=== PATIENT | male | born 1980 | race Caucasian/White ===

== ENCOUNTER 2016-06-23 01:33 | Emergency (ER) | payer OTHER ==
[2016-06-23 01:41] VITALS: TEMP 98.1; BMI 28.8
[2016-06-23 01:58] LABS: BASOPHIL 1.1 % (0-2.0); MCH 29.9 pg (25.7-33.7); MCHC 33.3 g/dl (32.0-35.9); MEAN PLT VOLUME 8.1 fl (7.5-11.1); NEUTROPHILS 50.7 % (42.8-82.8); PLATELET COUNT 281 K/MM3 (134-434); WHITE BLOOD COUNT 8.2 K/mm3 (4.0-10.0)
[2016-06-23 02:19] LABS: ALBUMIN 4.1 g/dl (3.4-5.0); ANION GAP 12 (8-16); BILIRUBIN,TOTAL 0.2 mg/dL (0.2-1.0); CALCIUM 8.9 mg/dL (8.5-10.1); CO2 25 mmol/L (21-32); CREATININE 0.9 mg/dL (0.7-1.3); GLUCOSE,RANDOM 108 mg/dL (74-106); SGOT/AST 162 U/L (15-37); SGPT/ALT 114 U/L (12-78); TOT PROT 7.3 g/dl (6.4-8.2)
[2016-06-23 02:31] LABS: ALK PHOS 90 U/L (45-117); TROPONIN I < 0.02 ng/ml (0.00-0.05)
[2016-06-23] MEDS ORDERED: SODIUM CHLORIDE 0.9% 500 ML INFUS.BAG IV ONE ×2 (03:38→05:08)
[2016-06-23] MEDS ORDERED: MAG HYDROX/AL HYDROX/SIMETH 30 ML UNIT-DOSE CUP PO ONE (03:45)
[2016-06-23] MEDS ORDERED: FAMOTIDINE 20 MG/50 ML IVPB 50 ML IVPB ONE ×2 (03:45→04:23)
[2016-06-23 04:23] LABS: URINE MARIJUANA THC NEGATIVE ng/ml (CUTOFF=50)
[2016-06-23] MEDS ORDERED: MAG HYDROX/AL HYDROX/SIMETH 30 ML UNIT-DOSE CUP ONE (04:23)
--- NOTE | 2016-06-23 04:35 | PDOC ---
History of Present Illness - General History Source: Patient - History of Present Illness Initial Comments: 06/23/16 04:36 The patient is a 35 year old male with a significant past medical history of HLD , asthma, and GERD who presents to the emergency department with complaints of constant chest pain since yesterday. Pt states that he was at [employer] when he started to have a severe heartburn. He states that he took famotidine at 2pm and 9pm, with minimal relief. He denies fever, chills, abdominal pain, nausea, vomiting, diarrhea, hematuria, dysuria ALL:theophylline PCP: Dr. Yesenia Kumar <Rhina Lombardo - Last Filed: 06/23/16 04:39> <Neeta Vega - Last Filed: 06/27/16 22:33> - General Chief Complaint: Chest Pain Stated Complaint: CHEST PAIN Time Seen by Provider: 06/23/16 03:21 Past History <Rhina Lombardo - Last Filed: 06/23/16 04:39> - Past Medical History Asthma: Yes GI Disorders: Yes (GERD) Hypercholesterolemia: Yes Suicide Attempt (Hx): No - Immunization History Immunization Up to Date: Yes - Psycho/Social/Smoking Cessation Hx Anxiety: No Suicidal Ideation: No Smoking Status: No Smoking History: Never smoked Have you smoked in the past 12 months: No Number of Cigarettes Smoked Daily: 0 Cigars Per Day: 0 Information on smoking cessation initiated: No Hx Alcohol Use: No Drug/Substance Use Hx: No Substance Use Type: None <Neeta Vega - Last Filed: 06/27/16 22:33> - Past Medical History Allergies/Adverse Reactions: Allergies Allergy/AdvReac Type Severity Reaction Status Date / Time theophylline Allergy Unknown Verified 06/23/16 01:40 Home Medications: Ambulatory Orders NK [No Known Home Medication] 05/28/16 Review of Systems - Review of Systems Able to Perform ROS?: Yes Comments:: 06/23/16 04:37 GENERAL/CONSTITUTIONAL: No: fever, chills, weakness, loss of appetite. HEAD, EYES, EARS, NOSE AND THROAT: No: change in vision, ear pain, discharge, sore throat, throat swelling. CARDIOVASCULAR: Yes: chest pain No: lightheadedness, palpitations, syncope RESPIRATORY: No: cough, shortness of breath, wheezing, hemoptysis, stridor. GASTROINTESTINAL: No: nausea, vomiting, abdominal cramping, diarrhea, rectal bleeding, constipation. GENITOURINARY: No: dysuria, hematuria, frequency, urgency, flank pain. MUSCULOSKELETAL: No: back pain, neck pain, joint pain, muscle swelling or pain SKIN AND BREASTS: No: lesions, pallor, rash or easy bruising. NEUROLOGIC: No: headache, vertigo, paresthesias, weakness ENDOCRINE: No: unexplained weight gain or loss HEMATOLOGIC/LYMPHATIC: No: anemia, easy bleeding, swelling nodes All Other Systems: Reviewed and Negative <Rhina Lobmardo - Last Filed: 06/23/16 04:39> *Physical Exam - Vital Signs Last Vital Signs Temp Pulse Resp BP Pulse Ox 98.1 F 72 20 135/75 100 06/23/16 01:40 06/23/16 01:40 06/23/16 01:40 06/23/16 01:40 06/23/16 01:40 - Physical Exam Comments: 06/23/16 04:38 GENERAL: The patient is in no acute distress. HEAD: Normal with no signs of trauma. EYES: PERRLA, EOMI, sclera anicteric, conjunctiva clear. ENT: Ears normal, nares patent, oropharynx clear without exudates. Moist mucous membranes. NECK: Normal range of motion, supple without lymphadenopathy, JVD, or masses. LUNGS: Breath sounds equal, clear to auscultation bilaterally. No wheezes, and no crackles. HEART:Regular rate and rhythm, normal S1 and S2 without murmur, rub or gallop. ABDOMEN: Soft, nontender, normoactive bowel sounds. No guarding, no rebound. EXTREMITIES: Normal range of motion, no edema. No clubbing or cyanosis. No erythema, or tenderness. NEUROLOGICAL: Cranial nerves II through XII grossly intact. Normal speech. No focal neurological deficits. MUSCULOSKELETAL: Back non-tender to palpation, no CVA tenderness SKIN: Warm, Dry, normal turgor, no rashes or lesions noted. <Rhina Lombardo - Last Filed: 06/23/16 04:39> - Vital Signs Last Vital Signs Temp Pulse Resp BP Pulse Ox 98.1 F 72 20 135/75 100 06/23/16 01:40 06/23/16 01:40 06/23/16 01:40 06/23/16 01:40 06/23/16 01:40 <Neeta Vega - Last Filed: 06/27/16 22:33> ED Treatment Course - LABORATORY CBC & Chemistry Diagram: 06/23/16 01:45 06/23/16 01:45 - ADDITIONAL ORDERS Additional order review: Laboratory Results 06/23/16 06/23/16 06/23/16 03:51 01:45 01:45 Sodium 142 Potassium 3.9 Chloride 105 Carbon Dioxide 25 Anion Gap 12 BUN 13 Creatinine 0.9 Creat Clearance w eGFR > 60 Random Glucose 108 H D Calcium 8.9 Total Bilirubin 0.2 D AST 162 H D ALT 114 H D Alkaline Phosphatase 90 Creatine Kinase 6170 H D Creatine Kinase Index 0.0 CK-MB (CK-2) 2.470 CK-MB (CK-2) Rel Index Cancelled Troponin I < 0.02 Total Protein 7.3 Albumin 4.1 Opiates Screen Negative Methadone Screen Negative Barbiturate Screen Negative Phencyclidine Screen Negative Ur Amphetamines Screen Negative MDMA (Ecstasy) Screen Negative Benzodiazepines Screen Negative Cocaine Screen Negative U Marijuana (THC) Screen Negative 06/23/16 01:45 RBC 4.98 MCV 90.0 MCHC 33.3 RDW 13.0 MPV 8.1 Neutrophils % 50.7 Lymphocytes % 33.7 Monocytes % 9.5 Eosinophils % 5.0 H D Basophils % 1.1 - Medications Given in the ED: ED Medications Discontinued Medications Generic Name Dose Route Start Last Admin Trade Name Freq PRN Reason Stop Dose Admin Al Hydroxide/Mg Hydroxide 30 ml 06/23/16 03:45 06/23/16 04:24 Mylanta Oral Suspension - PO 06/23/16 03:46 30 ml ONCE ONE Administration Famotidine/Sodium Chloride 50 mls @ 100 mls/hr 06/23/16 03:45 06/23/16 04:24 Pepcid 20 Mg Premixed Ivpb - IVPB 06/23/16 04:14 100 mls/hr ONCE ONE Administration Sodium Chloride 1,000 ml 06/23/16 03:38 06/23/16 04:24 Normal Saline - IV 06/23/16 03:39 1,000 ml ONCE ONE Administration <Rhina Lombardo - Last Filed: 06/23/16 04:39> - LABORATORY CBC & Chemistry Diagram: 06/23/16 01:45 06/23/16 01:45 - ADDITIONAL ORDERS Additional order review: Laboratory Results 06/23/16 06/23/16 06/23/16 03:51 01:45 01:45 Sodium 142 Potassium 3.9 Chloride 105 Carbon Dioxide 25 Anion Gap 12 BUN 13 Creatinine 0.9 Creat Clearance w eGFR > 60 Random Glucose 108 H D Calcium 8.9 Total Bilirubin 0.2 D AST 162 H D ALT 114 H D Alkaline Phosphatase 90 Creatine Kinase 6170 H D Creatine Kinase Index 0.0 CK-MB (CK-2) 2.470 CK-MB (CK-2) Rel Index Cancelled Troponin I < 0.02 Total Protein 7.3 Albumin 4.1 Opiates Screen Negative Methadone Screen Negative Barbiturate Screen Negative Phencyclidine Screen Negative Ur Amphetamines Screen Negative MDMA (Ecstasy) Screen Negative Benzodiazepines Screen Negative Cocaine Screen Negative U Marijuana (THC) Screen Negative 06/23/16 01:45 RBC 4.98 MCV 90.0 MCHC 33.3 RDW 13.0 MPV 8.1 Neutrophils % 50.7 Lymphocytes % 33.7 Monocytes % 9.5 Eosinophils % 5.0 H D Basophils % 1.1 - Medications Given in the ED: ED Medications Discontinued Medications Generic Name Dose Route Start Last Admin Trade Name Luiz PRN Reason Stop Dose Admin Al Hydroxide/Mg Hydroxide 30 ml 06/23/16 03:45 06/23/16 04:24 Mylanta Oral Suspension - PO 06/23/16 03:46 30 ml ONCE ONE Administration Famotidine/Sodium Chloride 50 mls @ 100 mls/hr 06/23/16 03:45 06/23/16 04:24 Pepcid 20 Mg Premixed Ivpb - IVPB 06/23/16 04:14 100 mls/hr ONCE ONE Administration Sodium Chloride 1,000 ml 06/23/16 03:38 06/23/16 04:24 Normal Saline - IV 06/23/16 03:39 1,000 ml ONCE ONE Administration <Neeta Vega - Last Filed: 06/27/16 22:33> Medical Decision Making - Medical Decision Making 06/27/16 22:30 Pt comes with epigastric pain that began after eating out; LFTs are elevated; pt states that he has had elevated LFTs in the past. However today they are slightly higher than before. He understands that he must follow with GI as an outpatient to make sure that he has no viral hepatitis. Amylase and lipase are normal. Pt has elevated CPK; he states that he recently started working out. He also took creatine supplements. Pt was hydrated in the ER and he was asked to stop the creatine supplements and to hydrate better after workouts. Pt is otherwise stable and will be discharged home. <Neeta Vega - Last Filed: 06/27/16 22:33> *DC/Admit/Observation/Transfer - Attestations Scribe Attestion: 06/23/16 04:38 Documentation prepared by Rhina Lombardo, acting as center medical specialist for Neeta Vega MD. <Rhina Lombardo - Last Filed: 06/23/16 04:39> - Discharge Dispostion Admit: No <Neeta Vega - Last Filed: 06/27/16 22:33> Diagnosis at time of Disposition: Elevated transaminase level, Elevated CPK - Discharge Dispostion Disposition: HOME Condition at time of disposition: Stable - Referrals Referrals: Yesenia Kumar MD [Primary Care Provider] - Faustino Mac MD [Staff Physician] - - Patient Instructions Printed Discharge Instructions: DI for Rhabdomyolysis, Liver Function Tests
[2016-06-23 05:51] VITALS: BP 129/76; PULSE 75
--- NOTE | 2016-06-23 11:02 | EKG ---
Test Reason : Blood Pressure : / mmHG Vent. Rate : 067 BPM Atrial Rate : 067 BPM P-R Int : 166 ms QRS Dur : 104 ms QT Int : 402 ms P-R-T Axes : 057 038 037 degrees QTc Int : 424 ms NORMAL SINUS RHYTHM WITH SINUS ARRHYTHMIA NORMAL ECG WHEN COMPARED WITH ECG OF 27-MAY-2016 17:44, NO SIGNIFICANT CHANGE WAS FOUND Confirmed by EBONIE DENNISON MD ([id number]) on 06/23/2016 11:02:28 AM Referred By: Confirmed By:EBONIE DENNISON MD
== END 2016-06-23 06:04 | disposition home or self-care (01) ==
LOC: JER 01:33
PROC: 3E033GC Introduction of Other Therapeutic Substance into Peripheral Vein, Percutaneous Approach (ICD-10-PCS; principal; 2016-06-23)
DX: R74.0 Nonspecific elevation of levels of transaminase and lactic acid dehydrogenase [LDH] (principal); R74.8 Abnormal levels of other serum enzymes; K21.9 Gastro-esophageal reflux disease without esophagitis; J45.909 Unspecified asthma, uncomplicated; E78.00 Pure hypercholesterolemia, unspecified
CPT/HCPCS: 36415; 80053; 80307; 82550; 82553; 83690; 84484; 85025; 93005; 93010; 99283-25

== ENCOUNTER 2016-11-22 20:56 | Emergency (ER) | payer OTHER ==
[2016-11-22 21:01] VITALS: TEMP 98; BMI 29.2
--- NOTE | 2016-11-22 21:07 | PDOC ---
History of Present Illness - History of Present Illness Initial Comments: 11/22/16 21:49 The patient is a 36-year-old male, with history of GERD and possible IBS, who presents to the emergency department for diarrhea and abdominal cramps for about one week since returning from a trip to [place]. The patient reports he began having exacerbation of his heartburn prior to his trip and started taking Nexium daily with some relief. The patient states that while in [place], he began developing 3-4 episodes of daily nonbloody, watery diarrhea. He states he was prompted to come to the ED today when his episodes of diarrhea increased to 5-6 times daily. He reports his bowel movements are yellow/green and watery. He also admits to some intermittent left-sided abdominal cramping. He denies history of endoscopy or colonoscopy. He reports experiencing similar symptoms after traveling to [facility] a couple of years ago, however, states his current symptoms are worse than the previous. He denies chest pain, shortness of breath, headache and dizziness. He denies fever, chills, nausea, vomit, and constipation. He denies dysuria, frequency, urgency and hematuria. Allergies: theophylline <Doris Lowery - Last Filed: 11/22/16 21:49> <Chad Thurston - Last Filed: 11/22/16 23:58> - General Chief Complaint: Pain Stated Complaint: ABD DISTRESS Time Seen by Provider: 11/22/16 21:05 Past History <Doris Lowery - Last Filed: 11/22/16 21:49> - Past Medical History Asthma: Yes GI Disorders: Yes (GERD) Hypercholesterolemia: Yes Suicide Attempt (Hx): No - Immunization History Immunization Up to Date: Yes - Psycho/Social/Smoking Cessation Hx Anxiety: No Suicidal Ideation: No Smoking Status: No Smoking History: Never smoked Have you smoked in the past 12 months: No Number of Cigarettes Smoked Daily: 0 Cigars Per Day: 0 Information on smoking cessation initiated: No Hx Alcohol Use: No Drug/Substance Use Hx: No Substance Use Type: None <Chad Thurston - Last Filed: 11/22/16 23:58> - Past Medical History Allergies/Adverse Reactions: Allergies Allergy/AdvReac Type Severity Reaction Status Date / Time theophylline Allergy Unknown Verified 11/22/16 20:57 Home Medications: Ambulatory Orders NK [No Known Home Medication] 05/28/16 Review of Systems - Review of Systems Constitutional: No: Chills, Fever, Night Sweats, Unintentional Wgt. Loss Respiratory: No: Cough, Shortness of Breath Cardiac (ROS): No: Chest Pain ABD/GI: Yes: See HPI, Diarrhea. No: Constipated, Nausea, Vomiting Musculoskeletal: No: Muscle Pain Neurological: No: Headache All Other Systems: Reviewed and Negative <Chad Thurston - Last Filed: 11/22/16 23:58> *Physical Exam - Vital Signs Last Vital Signs Temp Pulse Resp BP Pulse Ox 98.0 F 87 18 117/68 100 11/22/16 20:58 11/22/16 20:58 11/22/16 20:58 11/22/16 20:58 11/22/16 20:58 - Physical Exam Comments: 11/22/16 21:49 GENERAL: The patient is awake, alert, and fully oriented, in no acute distress. HEAD: Normal with no signs of trauma. EYES: Pupils equal, round and reactive to light, extraocular movements intact, sclera anicteric, conjunctiva clear with no pallor. ENT: Ears normal, nares patent, oropharynx clear without exudates. Moist mucous membranes. NECK: Normal range of motion, supple without lymphadenopathy, JVD, or masses. LUNGS: Breath sounds equal, clear to auscultation bilaterally. No wheeze/ crackles. HEART: Regular rate and rhythm, normal S1 and S2 without murmur or rub. ABDOMEN: Soft/nontender/nondistended. BS wnl. No guarding or rebound. No palpable masses. No hepatosplenomegaly. EXTREMITIES: Normal range of motion, no edema. No clubbing or cyanosis. No cords, erythema, or tenderness. NEUROLOGICAL: Cranial nerves II through XII grossly intact. Normal speech, normal gait. PSYCH: Normal mood, normal affect. SKIN: Warm, Dry, normal turgor, no rashes or lesions noted. <Doris Lowery - Last Filed: 11/22/16 21:49> - Vital Signs Last Vital Signs Temp Pulse Resp BP Pulse Ox 98.0 F 87 18 117/68 100 11/22/16 20:58 11/22/16 20:58 11/22/16 20:58 11/22/16 20:58 11/22/16 20:58 <Chad Thurston - Last Filed: 11/22/16 23:58> ED Treatment Course - LABORATORY CBC & Chemistry Diagram: 11/22/16 22:40 11/22/16 22:40 <Chad Thurston - Last Filed: 11/22/16 23:58> Medical Decision Making - Medical Decision Making 11/22/16 21:38 A portion of this note was documented by scribe services under my direction. I have reviewed the details of the note, within reason, and agree with the documentation with the following case summary and management plan written by me. Healthy 36-year-old male with history of GERD, question IBS presents with diarrhea and abdominal cramps for about one week since returning from a trip to [place]. Patient began having exacerbation of his heartburn prior to his trip, started taking Nexium with some relief. While in [place], began developing 3-4 episodes of nonbloody watery diarrhea daily, which as been persistent and increasing to 5-6 episodes today, prompting his ED visit. Some left-sided abdominal cramping but no persistent pain, no fevers or chills, no vomiting. No history of endoscopy or colonoscopy, just takes Nexium as needed for his heartburn exacerbations. Vital signs normal. Well-appearing, slightly dry mucosa No jaundice or pallor abd soft/nd. no focal ttp, no guarding/rebound. no cvat. 36-year-old male presents with nonbloody diarrhea and intermittent abdominal cramping after recent travel to [place], no fevers or chills. No peritoneal findings on exam. Presentation seems most consistent with traveler's diarrhea in the setting of recent GERD exacerbation, less likely focal bacterial infectious process such as colitis or diverticulitis. No indication for emergent imaging at this time will check CBC and chemistries, give IV fluid hydration, and IV antacid Reassess and dispo accordingly 11/22/16 23:55 Chemistries are within normal limits, no leukocytosis and normal differential. Looks and feels well, seated comfortably in stretcher listening to music, no further diarrhea in the ED. No indication for emergent imaging, no indication for antibiotics. We'll discharge encouraging hydration, understands return criteria. <Chad Thurston - Last Filed: 11/22/16 23:58> *DC/Admit/Observation/Transfer - Attestations Scribe Attestion: 11/22/16 21:50 Documentation prepared by Doris Lowery, acting as medical review specialist for Chad Thurston MD, <Doris Lowery - Last Filed: 11/22/16 21:49> <Chad Thurston - Last Filed: 11/22/16 23:58> Diagnosis at time of Disposition: Traveler's diarrhea - Discharge Dispostion Disposition: HOME Condition at time of disposition: Improved - Referrals Referrals: Jamie Mata DO [Staff Physician] - - Patient Instructions Printed Discharge Instructions: DI for Diarrhea and Traveler's Diarrhea -- Adult Additional Instructions: Activity as tolerated. Stay hydrated. Plenty of fluids, consider Gatorade/water mix or Pedialyte [id number]. Take Pepcid or Zantac twice daily for 10 days in addition to your Nexium. Continue Nexium daily. Advance diet as tolerated, avoiding dairy, spicy or fatty foods, caffeine and alcohol. The diarrhea is likely to resolve in the next week or so, you can take small amounts of Imodium [id number]. You should follow up with your primary doctor or a GI specialist as soon as possible regarding today's emergency department visit. Return to the emergency department for any new or concerning symptoms, particularly worsening diarrhea or bloody diarrhea, persistent or worsening pain , fevers or chills, dehydration or vomiting.
[2016-11-22] MEDS ORDERED: FAMOTIDINE 20 MG/50 ML IVPB 50 ML IVPB ONE ×2 (21:19→22:27)
[2016-11-22] MEDS ORDERED: SODIUM CHLORIDE 1,000 ML IV ONE (21:19)
[2016-11-22 22:48] LABS: BASOPHIL 0.5 % (0-2.0); MCH 29.9 pg (25.7-33.7); MCHC 33.3 g/dl (32.0-35.9); MEAN CELL VOLUME 89.9 fl (80-96); MEAN PLT VOLUME 8.2 fl (7.5-11.1); NEUTROPHILS 54.8 % (42.8-82.8); PLATELET COUNT 259 K/MM3 (134-434); RDW 13.4 % (11.9-15.9); WHITE BLOOD COUNT 8.9 K/mm3 (4.0-10.0)
[2016-11-22 23:14] LABS: ANION GAP 8 (8-16); BILIRUBIN,TOTAL 0.3 mg/dL (0.2-1.0); CALCIUM 9.2 mg/dL (8.5-10.1); CO2 28 mmol/L (21-32); GLUCOSE,RANDOM 87 mg/dL (74-106); SGOT/AST 28 U/L (15-37); SGPT/ALT 52 U/L (12-78); TOT PROT 7.6 g/dl (6.4-8.2)
[2016-11-22 23:15] LABS: ALK PHOS 97 U/L (45-117)
[2016-11-23 00:13] VITALS: BP 121/72; PULSE 82
== END 2016-11-23 00:13 | disposition home or self-care (01) ==
LOC: JER 20:56
PROC: 3E033GC Introduction of Other Therapeutic Substance into Peripheral Vein, Percutaneous Approach (ICD-10-PCS; principal; 2016-11-22)
DX: R19.7 Diarrhea, unspecified (principal); K21.9 Gastro-esophageal reflux disease without esophagitis
CPT/HCPCS: 36415; 80053; 83690; 85025; 99282-25

== ENCOUNTER 2017-09-20 18:34 | Emergency (ER) | payer OTHER ==
[2017-09-20 18:43] VITALS: BP 129/76; PULSE 91; TEMP 97.2; BMI 29.2
--- NOTE | 2017-09-20 19:26 | PDOC ---
History of Present Illness - General Chief Complaint: Pain, Acute Stated Complaint: PAIN, ACUTE Time Seen by Provider: 09/20/17 19:13 - History of Present Illness Initial Comments: 09/20/17 19:23 37 year old male with a PMH of H. pylori (x2), GERD and asthma presents to our ED this evening c/o 1 week h/o abdominal pain. Pain is associated with meals and is a burning sensation that extends from his middle abdomen to his throat. Endorses associated loose stools. Patient has tried OTC Zantac without any relief. Patient states his symptoms started 6 days previous after a large amount of alcohol consumption. Patient states he contracted H. pylori in [place] and has had an endoscopy s/p treatment. Patient is unrelatedly requesting STI testing. He denies chest pain, shortness of breath, headache and dizziness. He denies fever, chills, nausea, vomit, and constipation. He denies dysuria, frequency, urgency and hematuria. Allergy: Theophylline Past History - Past Medical History Allergies/Adverse Reactions: Allergies Allergy/AdvReac Type Severity Reaction Status Date / Time theophylline Allergy Unknown Verified 03/08/17 18:39 Home Medications: Ambulatory Orders NK [No Known Home Medication] 05/28/16 Asthma: Yes COPD: No GI Disorders: Yes (GERD, H pylori) Hypercholesterolemia: Yes - Immunization History Immunization Up to Date: Yes - Suicide/Smoking/Psychosocial Hx Smoking Status: No Smoking History: Never smoked Have you smoked in the past 12 months: No Number of Cigarettes Smoked Daily: 0 Cigars Per Day: 0 Information on smoking cessation initiated: No Hx Alcohol Use: No Drug/Substance Use Hx: No Substance Use Type: None Review of Systems - Review of Systems Constitutional: No: Chills, Fever Respiratory: No: Cough, Shortness of Breath Cardiac (ROS): No: Chest Pain, Lightheadedness, Palpitations, Syncope ABD/GI: Yes: Other (NB loose stools ). No: Constipated, Diarrhea, Nausea, Vomiting : No: Burning, Dysuria *Physical Exam - Vital Signs Last Vital Signs Temp Pulse Resp BP Pulse Ox 97.2 F L 91 H 20 129/76 96 09/20/17 18:37 09/20/17 18:37 09/20/17 18:37 09/20/17 18:37 09/20/17 18:37 - Physical Exam General Appearance: Yes: Nourished, Obese HEENT: negative: Tonsillar Exudate, Tonsillar Erythema Neck: positive: Trachea midline, Supple Respiratory/Chest: positive: Lungs Clear, Normal Breath Sounds Cardiovascular: positive: S1, S2. negative: Edema, JVD Gastrointestinal/Abdominal: positive: Normal Bowel Sounds, Soft, Protuberent Musculoskeletal: negative: CVA Tenderness (R), CVA Tenderness (L) Integumentary: positive: Normal Color, Dry, Warm Neurologic: positive: Fully Oriented, Alert ED Treatment Course - LABORATORY CBC & Chemistry Diagram: 09/20/17 20:08 09/20/17 20:08 Medical Decision Making - Medical Decision Making 09/20/17 19:35 37 year old male presents with 1 week h/o GERD like symptoms. VS unremarkable. Abdominal exam shows soft, non-tender belly with normactive bowel sounds. Will administer IV NS + Famotidine. Likely disposition is symptomatic resolution and dispo w/GI follow-up 09/20/17 21:34 HIV negative. G/C pending. Lipase wnL, patient's pain symptomatically improved. Patient extensively counseled on alcohol consumption and likely relationship to his SiSx. Will discharge home with return precautions and GI follow-up. I discussed the physical exam findings, ancillary test results and final diagnoses with the patient. I answered all of the patient's questions. The patient was satisfied with the care received and felt comfortable with the discharge plan and treatment plan. The patient will return to the Emergency Department with any new, persistent or worsening symptoms. *DC/Admit/Observation/Transfer Diagnosis at time of Disposition: Abdominal pain - Referrals Referrals: Yesenia Kumar MD [Primary Care Provider] - David Nguyen MD [Staff Physician] - - Patient Instructions Additional Instructions: Please make a follow-up appointment with GI (Dr. Nguyen). Your HIV test was negative. You can call the hospital in 72 hours for the remainder of your test results. Return to the Emergency Department for any new/worsening/concerning symptoms. - Post Discharge Activity Forms/Work/School Notes: Back to Work
[2017-09-20] MEDS ORDERED: SODIUM CHLORIDE 0.9% 500 ML INFUS.BAG IV ONE (19:28)
[2017-09-20] MEDS ORDERED: FAMOTIDINE IV 20 MG/12 ML VIAL IVPUSH ONE (19:29)
[2017-09-20] MEDS ORDERED: FAMOTIDINE 20 MG/50 ML IVPB 20 MG/50 ML MG IVPB ONE (19:33)
[2017-09-20 20:30] LABS: BASO % 0.4 % (0-2.0); EOS % 2.5 % (0-4.5); HEMATOCRIT 43.8 % (35.4-49); HEMOGLOBIN 14.9 GM/dL (11.7-16.9); LYMPH % 38.1 % (8-40); MEAN CELL VOLUME 91.2 fl (80-96); MEAN PLT VOLUME 8.8 fl (7.5-11.1); MONO % 9.2 % (3.8-10.2); NEUT % 49.8 % (42.8-82.8); PLATELET COUNT 251 K/MM3 (134-434); RDW 13.3 % (11.9-15.9); WHITE BLOOD COUNT 7.4 K/mm3 (4.0-10.0)
[2017-09-20 21:02] LABS: ALBUMIN 3.7 g/dl (3.4-5.0); ALK PHOS 91 U/L (45-117); ANION GAP 6 (8-16); BILIRUBIN,TOTAL 0.2 mg/dL (0.2-1.0); BLOOD UREA NITROGEN 13 mg/dL (7-18); CALCIUM 8.3 mg/dL (8.5-10.1); CHLORIDE 108 mmol/L (98-107); CO2 27 mmol/L (21-32); CREATININE 0.9 mg/dL (0.7-1.3); GLUCOSE,RANDOM 116 mg/dL (74-106); POTASSIUM 3.7 mmol/L (3.5-5.1); SGOT/AST 27 U/L (15-37); SGPT/ALT 54 U/L (12-78); SODIUM 141 mmol/L (136-145); TOT PROT 7.2 g/dl (6.4-8.2)
--- NOTE | 2017-09-22 13:40 | EKG ---
Test Reason : Blood Pressure : / mmHG Vent. Rate : 081 BPM Atrial Rate : 081 BPM P-R Int : 158 ms QRS Dur : 110 ms QT Int : 390 ms P-R-T Axes : 047 061 036 degrees QTc Int : 453 ms NORMAL SINUS RHYTHM NORMAL ECG WHEN COMPARED WITH ECG OF 23-JUN-2016 01:41, NO SIGNIFICANT CHANGE WAS FOUND Confirmed by MD MIC, NADIRA ([id number]) on 09/22/2017 1:40:27 PM Referred By: Confirmed By:NADIRA HAILE MD
== END 2017-09-20 22:03 | disposition home or self-care (01) ==
LOC: JER 18:34
PROC: 3E033GC Introduction of Other Therapeutic Substance into Peripheral Vein, Percutaneous Approach (ICD-10-PCS; principal; 2017-09-20)
DX: K21.9 Gastro-esophageal reflux disease without esophagitis (principal); Z71.41 Alcohol abuse counseling and surveillance of alcoholic; Z87.19 Personal history of other diseases of the digestive system; Z86.19 Personal history of other infectious and parasitic diseases
CPT/HCPCS: 36415; 80053; 83690; 85025; 86593; 87389; 87491; 87591; 93005; 93010; 99282-25

== ENCOUNTER 2018-05-18 10:04 | Observation (INO) | payer OTHER ==
[2018-05-18] MEDS ORDERED: dilTIAZem HCL 50 MG/10 ML - 10 ML VIAL IVPUSH ONE (10:27)
[2018-05-18] MEDS ORDERED: SODIUM CHLORIDE 1,000 ML IV STA (10:27)
[2018-05-18 10:36] LABS: EOS % 1.6 % (0-4.5); HEMATOCRIT 43.9 % (35.4-49); HEMOGLOBIN 15.4 GM/dL (11.7-16.9); LYMPH % 39.5 % (8-40); MCH 31.5 pg (25.7-33.7); MCHC 35.2 g/dl (32.0-35.9); MEAN CELL VOLUME 89.6 fl (80-96); MEAN PLT VOLUME 7.9 fl (7.5-11.1); MONO % 10.2 % (3.8-10.2); NEUT % 47.7 % (42.8-82.8); PLATELET COUNT 287 K/MM3 (134-434); WHITE BLOOD COUNT 6.2 K/mm3 (4.0-10.0)
[2018-05-18] MEDS ORDERED: dilTIAZem HCL 125 MG/25 ML - 25 ML VIAL ONE (10:37)
[2018-05-18] MEDS ORDERED: dilTIAZem HCL 30 MG TABLET (FP) PO ONE (10:43)
--- NOTE | 2018-05-18 10:43 | PDOC ---
History of Present Illness <Yessenia Peterson - Last Filed: 05/18/18 11:27> - General History Source: Patient Exam Limitations: No Limitations - History of Present Illness Initial Comments: 05/18/18 10:33 Patient is a 37M with history of asthma and SANTIAGO here today complaining of rapid heart beat that started several hours ago after using albuterol and walking up a hill. Patient states that he's had this happen several times in the past. Denies fevers, chills, nausea, vomiting. Denies leg swelling, prior blood clots and recent immobilization. Patient states that he had a stress test because he felt periods of rapid heart beats several times in the past so he was concerned. Denies chest pain, shortness of breath. Stress test was normal. <Ok Aguilar - Last Filed: 05/18/18 13:25> - General Chief Complaint: Palpitations Stated Complaint: PALPITATIONS,DIZZINESS Time Seen by Provider: 05/18/18 10:17 Past History <Yessenia Peterson - Last Filed: 05/18/18 11:27> - Past Medical History Asthma: Yes COPD: No GI Disorders: Yes (GERD) Hypercholesterolemia: Yes - Immunization History Immunization Up to Date: Yes - Suicide/Smoking/Psychosocial Hx Smoking Status: No Smoking History: Never smoked Have you smoked in the past 12 months: No Number of Cigarettes Smoked Daily: 0 Cigars Per Day: 0 Hx Alcohol Use: No Drug/Substance Use Hx: No Substance Use Type: None <Ok Aguilar - Last Filed: 05/18/18 13:25> - Past Medical History Allergies/Adverse Reactions: Allergies Allergy/AdvReac Type Severity Reaction Status Date / Time theophylline Allergy Unknown Verified 05/18/18 10:06 Home Medications: Ambulatory Orders NK [No Known Home Medication] 05/28/16 Review of Systems - Review of Systems Comments:: 05/18/18 10:38 GENERAL/CONSTITUTIONAL: No fever or chills. No weakness. HEAD, EYES, EARS, NOSE AND THROAT: No change in vision. No sore throat. CARDIOVASCULAR: No chest pain or shortness of breath +palpitations RESPIRATORY: No cough, wheezing, or hemoptysis. GASTROINTESTINAL: No nausea, vomiting, diarrhea or constipation. GENITOURINARY: No dysuria, frequency, or change in urination. MUSCULOSKELETAL: No joint or muscle swelling or pain. No neck or back pain. SKIN: No rash NEUROLOGIC: No headache, vertigo, loss of consciousness, or change in strength/ sensation. ENDOCRINE: No increased thirst. No abnormal weight change HEMATOLOGIC/LYMPHATIC: No anemia, easy bleeding, or history of blood clots. ALLERGIC/IMMUNOLOGIC: No hives or skin allergy. <Ok Aguilar - Last Filed: 05/18/18 13:25> *Physical Exam - Vital Signs Last Vital Signs Temp Pulse Resp BP Pulse Ox 97.3 F L 98 H 18 93/63 96 05/18/18 10:06 05/18/18 10:59 05/18/18 10:59 05/18/18 10:59 05/18/18 10:59 <Yessenia Peterson - Last Filed: 05/18/18 11:27> - Vital Signs Last Vital Signs Temp Pulse Resp BP Pulse Ox 97.3 F L 120 H 18 126/71 98 05/18/18 10:06 05/18/18 10:06 05/18/18 10:06 05/18/18 10:06 05/18/18 10:06 - Physical Exam Comments: 05/18/18 10:46 GENERAL: Awake, alert, and fully oriented, in no acute distress HEAD: No signs of trauma, normocephalic, atraumatic EYES: PERRLA, EOMI, sclera anicteric, conjunctiva clear ENT: Auricles normal inspection, hearing grossly normal, nares patent, oropharynx clear without exudates. Moist mucosa NECK: Normal ROM, supple, no lymphadenopathy, JVD, or masses LUNGS: No distress, speaks full sentences, clear to auscultation bilaterally HEART: Irregular, tachycardic ABDOMEN: Soft, nontender, normoactive bowel sounds. No guarding, no rebound. No masses EXTREMITIES: Normal inspection, Normal range of motion, no edema. No clubbing or cyanosis. NEUROLOGICAL: Cranial nerves II through XII grossly intact. Normal speech, normal gait, no focal sensorimotor deficits SKIN: Warm, Dry, normal turgor, no rashes or lesions noted. <Ok Aguilar - Last Filed: 05/18/18 13:25> Moderate Sedation - Procedure Monitoring Vital Signs: Procedure Monitoring Vital Signs Temperature 97.3 F L 05/18/18 10:06 Pulse Rate 98 H 05/18/18 10:59 Respiratory Rate 18 05/18/18 10:59 Blood Pressure 93/63 05/18/18 10:59 O2 Sat by Pulse Oximetry (%) 96 05/18/18 10:59 <Yessenia Peterson - Last Filed: 05/18/18 11:27> - Procedure Monitoring Vital Signs: Procedure Monitoring Vital Signs Temperature 97.3 F L 05/18/18 10:06 Pulse Rate 120 H 05/18/18 10:06 Respiratory Rate 18 05/18/18 10:06 Blood Pressure 126/71 05/18/18 10:06 O2 Sat by Pulse Oximetry (%) 98 05/18/18 10:06 <Ok Aguilar - Last Filed: 05/18/18 13:25> ED Treatment Course - LABORATORY CBC & Chemistry Diagram: 05/18/18 10:25 05/18/18 10:25 - ADDITIONAL ORDERS Additional order review: 05/18/18 10:25 RBC 4.90 MCV 89.6 MCHC 35.2 RDW 13.0 MPV 7.9 D Neutrophils % 47.7 Lymphocytes % 39.5 Monocytes % 10.2 Eosinophils % 1.6 Basophils % 1.0 - Medications Given in the ED: ED Medications Discontinued Medications Generic Name Dose Route Start Last Admin Trade Name Freq PRN Reason Stop Dose Admin Diltiazem HCl 20 mg 05/18/18 10:27 05/18/18 10:46 Cardizem Injection - IVPUSH 05/18/18 10:28 20 mg ONCE ONE Administration Diltiazem HCl 30 mg 05/18/18 10:43 05/18/18 10:49 Cardizem - PO 05/18/18 10:44 30 mg ONCE ONE Administration Sodium Chloride 1,000 mls @ 1,000 mls/hr 05/18/18 10:27 05/18/18 10:46 Normal Saline - IV 05/18/18 11:26 1,000 mls/hr ASDIR STA Administration <Yessenia Peterson - Last Filed: 05/18/18 11:27> - LABORATORY CBC & Chemistry Diagram: 05/18/18 10:25 05/18/18 10:25 - RADIOLOGY Radiology Studies Ordered: Category Date Time Status CXRPORT [CHEST X-RAY PORTABLE*] [RAD] Stat Radiology 05/18/18 10:28 Ordered <Ok Aguilar - Last Filed: 05/18/18 13:25> Medical Decision Making - Medical Decision Making 05/18/18 10:31 Dr. Rich Samayoa was paged and notified via phone service. <Yessenia Peterson - Last Filed: 05/18/18 11:27> - Medical Decision Making 05/18/18 10:47 Patient is 37M with history of asthma and SANTIAGO here today complaining of rapid HR. Vital signs notable for tachycardia and normal BP. EKG shows afib with RVR with rate of 127. No st elevations/depressions. Normal axis. Normal QTc/QRS. No significant t wave abnormalities. Patient has new onset afib with no clear trigger. No clear onset, shock not indicated. BP stable, given 1L of NS and 20mg diltiazem. HR now in 80s, BP continued to be stable. Given PO chaser. 05/18/18 12:25 CBC, CMP reassuring. Troponin undetectable. Repeat EKG shows afib, rate of 81, no st elevations/depressions. Normal axis. Normal QRS/QTc intervals. 05/18/18 13:24 EKG now shows normal sinus rhythm. No st elevations/depressions. Normal intervals. <Ok Aguilar - Last Filed: 05/18/18 13:25> *DC/Admit/Observation/Transfer <Yessenia Peterson - Last Filed: 05/18/18 11:27> - Discharge Dispostion Decision to Admit order: Yes <Ok Aguilar - Last Filed: 05/18/18 13:25> Diagnosis at time of Disposition: Atrial fibrillation with RVR - Discharge Dispostion Condition at time of disposition: Stable
[2018-05-18] MEDS ORDERED: dilTIAZem HCL 30 MG TABLET (FP) ONE (10:47)
--- NOTE | 2018-05-18 11:01 | PDOC ---
Attending Attestation - Medical Decision Making Case discussed with Dr. Ananda Aguayo at 12:41. <Harrison Putnam - Last Filed: 05/18/18 12:41> - Resident Resident Name: Juan AlbertoOk reddy - ED Attending Attestation I have performed the following: I have examined & evaluated the patient, The case was reviewed & discussed with the resident, I agree w/resident's findings & plan, Exceptions are as noted - HPI HPI: 05/18/18 10:59 37y M hx of asthma, SANTIAGO presents with palpitations for approx 2 hrs. pt ntoes he woke up feeling well, had an albuterol and [place]inted [place] to get to his car and started feeling palpitations. He has had this happen before, but this time it didnt resolve spontaneously. Pt denies any palpitations, sob, cp, n/v, back pain, abd pain, diarrhea, emlena, bpr, weight loss, sweats, cough, hemoptysis, leg swelling. GENERAL: The patient is awake, alert, and fully oriented, Nontoxic - in no acute distress. HEAD: Normocephalic, atraumatic. EYES: extraocular movements intact, sclera anicteric, conjunctiva clear. ENT: Normal voice, Moist mucous membranes. NECK: Normal range of motion, supple LUNGS: Breath sounds equal, clear to auscultation bilaterally. No wheezes, no rhonchi, no rales. HEART: irregularly irregular, normal S1 and S2 without murmur, rub or gallop. ABDOMEN: Soft, nontender, normoactive bowel sounds. No guarding, no rebound. . No CVA tenderness EXTREMITIES: Normal range of motion, no edema. No clubbing or cyanosis. No cords, erythema, or tenderness. NEUROLOGICAL: No facial assymetry, Normal speech, PSYCH: Normal mood, normal affect. SKIN: Warm, Dry, normal turgor, - Physicial Exam PE: 05/20/18 10:23 see above - Critical Care Time Total Critical Care Time: 45 Critical Care Statement: The care of this patient involved high complexity decision making to prevent further life threatening deterioration of the patient 's condition and/or to evaluate & treat vital organ system(s) failure or risk of failure. - Medical Decision Making 05/18/18 15:22 37y M presns with new onset of afib. improved with dilitazem. unclear onset - so will need workup consulted cardiology pt on monitoring specialist had spontaneously cardioverted in ED while bieing observed. will admit to tele <Anthony Mc - Last Filed: 05/20/18 10:23> Attestations - Attestations Documentation prepared by Harrison Putnam, acting as medical office assistant for Anthony Mc MD. <Harrison Putnam - Last Filed: 05/18/18 12:41>
[2018-05-18 11:36] LABS: ALK PHOS 84 U/L (45-117); ANION GAP 5 MMOL/L (8-16); BILIRUBIN,TOTAL 0.6 mg/dL (0.2-1); BLOOD UREA NITROGEN 13 mg/dL (7-18); CHLORIDE 109 mmol/L (98-107); CO2 26 mmol/L (21-32); CREATININE 1.1 mg/dL (0.55-1.3); GLUCOSE,RANDOM 99 mg/dL (74-106); MAGNESIUM 2.3 mg/dL (1.8-2.4); POTASSIUM 4.1 mmol/L (3.5-5.1); SGOT/AST 38 U/L (15-37); SGPT/ALT 57 U/L (13-61); SODIUM 141 mmol/L (136-145); TOT PROT 7.8 g/dl (6.4-8.2)
[2018-05-18 11:39] LABS: INR 0.97 (0.83-1.09); PROTHROMBIN TIME (PATIENT) 11.4 SEC (9.7-13.0)
--- NOTE | 2018-05-18 14:24 | EKG ---
Test Reason : Blood Pressure : / mmHG Vent. Rate : 078 BPM Atrial Rate : 078 BPM P-R Int : 162 ms QRS Dur : 106 ms QT Int : 376 ms P-R-T Axes : 011 044 027 degrees QTc Int : 428 ms NORMAL SINUS RHYTHM NORMAL ECG WHEN COMPARED WITH ECG OF 18-MAY-2018 10:51, SINUS RHYTHM HAS REPLACED ATRIAL FIBRILLATION Confirmed by MD MIC, NADIRA ([id number]) on 05/18/2018 2:24:19 PM Referred By: Confirmed By:NADIRA HAILE MD
[2018-05-18 14:49] VITALS: BMI 30.4
--- NOTE | 2018-05-18 16:23 | EKG ---
Test Reason : Blood Pressure : / mmHG Vent. Rate : 081 BPM Atrial Rate : 096 BPM P-R Int : 000 ms QRS Dur : 104 ms QT Int : 374 ms P-R-T Axes : 000 070 019 degrees QTc Int : 434 ms ATRIAL FIBRILLATION ABNORMAL ECG Confirmed by MD NIKKIE, JOSÉ ([id number]) on 05/18/2018 4:23:18 PM Referred By: Confirmed By:JOSÉ LUNDY MD
--- NOTE | 2018-05-18 16:24 | EKG ---
Test Reason : Blood Pressure : / mmHG Vent. Rate : 127 BPM Atrial Rate : 136 BPM P-R Int : 000 ms QRS Dur : 106 ms QT Int : 294 ms P-R-T Axes : 000 067 030 degrees QTc Int : 427 ms ATRIAL FIBRILLATION WITH RAPID VENTRICULAR RESPONSE ABNORMAL ECG Confirmed by MD NIKKIE, JOSÉ ([id number]) on 05/18/2018 4:23:58 PM Referred By: Confirmed By:JOSÉ LUNDY MD
[2018-05-18] MEDS ORDERED: ACETAMINOPHEN 325 MG TABLET (FP) PO PRN (16:44)
--- NOTE | 2018-05-18 17:42 | HP ---
Admitting History and Physical - Primary Care Physician PCP: Ananda Aguayo - Admission Chief Complaint: Papitations History of Present Illness: Pt with significant Hx/o HLP, SANTIAGO, Asthma, useed albuterol pump this AM and ran up the hill to his car; as he got to his car felt his heart beating fast and kept being fast; Pt felt lightheaded at work and as his HR kept beiong fast decided to come to ER. In ER his HR was found in upper 120 and EKG was consistant with A Fib; pt received Cardizem IVP and PO. History Source: Patient - Past Medical History Cardiovascular: Yes: Hyperlipdemia Pulmonary: Yes: Asthma, Sleep Apnea - Past Surgical History Additional Past Surgical History: Right knee Sx - Smoking History Smoking history: Never smoked Have you smoked in the past 12 months: No Aproximately how many cigarettes per day: 0 - Alcohol/Substance Use Hx Alcohol Use: Yes (socially) History of Substance Use: reports: None Home Medications - Allergies Allergies/Adverse Reactions: Allergies Allergy/AdvReac Type Severity Reaction Status Date / Time theophylline Allergy Unknown Verified 05/18/18 10:06 - Home Medications Home Medications: Ambulatory Orders NK [No Known Home Medication] 05/28/16 Review of Systems - Review of Systems Constitutional: denies: Chills, Fever Eyes: denies: Blind Spots, Blurred Vision HENT: denies: Difficult Swallowing, Ear Discharge, Nasal Congestion, Throat Pain Neck: denies: Pain on Movement, Stiffness, Tenderness Cardiovascular: reports: Palpitations. denies: Chest Pain, Edema Respiratory: denies: Cough, SOB, SOB on Exertion, Wheezing Gastrointestinal: denies: Abdominal Pain, Diarrhea, Nausea, Vomiting Genitourinary: denies: Burning, Discharge, Dysuria Musculoskeletal: denies: Back Pain, Joint Swelling, Muscle Pain Integumentary: denies: Blister, Bruising, Eczema Neurological: denies: Change in LOC, Change in Speech, Numbness, Parasthesia, Unsteady Gait, Weakness Endocrine: denies: Excessive Sweating, Intolerance to Cold Hematology/Lymphatic: denies: Easily Bruised, Excessive Bleeding Psychiatric: denies: Anxiety, Depression Physical Examination Vital Signs: Vital Signs Temperature 97.7 F 05/18/18 14:29 Pulse Rate 77 05/18/18 14:29 Respiratory Rate 18 05/18/18 14:29 Blood Pressure 105/60 05/18/18 14:29 O2 Sat by Pulse Oximetry (%) 96 05/18/18 14:29 Constitutional: Yes: No Distress, Calm Eyes: Yes: Conjunctiva Clear, EOM Intact, PERRL HENT: No: Hoarseness, Rhinnorhea, Thrush Neck: Yes: Trachea Midline. No: Lymphadenopathy Cardiovascular: Yes: Regular Rate and Rhythm, S1, S2 Respiratory: Yes: Regular, CTA Bilaterally. No: Rhonchi, Wheezes Gastrointestinal: Yes: Normal Bowel Sounds, Soft. No: Hepatomegaly, Tenderness ...Rectal Exam: Yes: Deferred Renal/: No: CVA Tenderness - Left, CVA Tenderness - Right Musculoskeletal: No: Back Pain, Joint Stiffness, Joint Swelling Edema: No Integumentary: No: Erythema, Petechiae, Rash Neurological: Yes: Alert, Oriented, Other (motor and sensory examination is symmeteric in the face/ UE/ LE) Psychiatric: Yes: Alert, Oriented Labs: CBC, BMP 05/18/18 10:25 05/18/18 10:25 Imaging - Results Chest X-ray: Report Reviewed Problem List - Problems (1) SANTIAGO (obstructive sleep apnea) Code(s): G47.33 - OBSTRUCTIVE SLEEP APNEA (ADULT) (PEDIATRIC) (2) Atrial fibrillation with RVR Code(s): I48.91 - UNSPECIFIED ATRIAL FIBRILLATION (3) Asthma Code(s): J45.909 - UNSPECIFIED ASTHMA, UNCOMPLICATED Qualifiers: Asthma severity: unspecified severity Asthma complication type: uncomplicated Qualified Code(s): J45.909 - Unspecified asthma, uncomplicated (4) Elevated CPK Code(s): R74.8 - ABNORMAL LEVELS OF OTHER SERUM ENZYMES Assessment/Plan Admit to telemetry Serial CE UA, U tox Cardio consult ECHO AM labs, include Thyroid tests
[2018-05-18 21:48] LABS: URINE APPEARANCE CLEAR; URINE BILIRUBIN NEGATIVE (<2.0 mg/dL); URINE COLOR YELLOW; URINE GLUCOSE (UA) NEGATIVE (NEGATIVE); URINE KETONE NEGATIVE (NEGATIVE); URINE LEUK ESTERASE NEGATIVE (NEGATIVE); URINE NITRITE NEGATIVE (NEGATIVE); URINE PROTEIN NEGATIVE (NEGATIVE); URINE UROBILINOGEN NEGATIVE mg/dL (0.2-1.0)
[2018-05-18 22:57] LABS: COCAINE, UR NEGATIVE ng/ml (CUTOFF=300); METHADONE, UR NEGATIVE ng/ml (CUTOFF=300); OPIATES, URI NEGATIVE ng/ml (CUTOFF=300); PHENCYCLIDINE,URINE NEGATIVE ng/ml (CUTOFF=25); URINE AMPHETAMINES NEGATIVE ng/ml (CUTOFF=500); URINE BARBITURATES NEGATIVE ng/ml (CUTOFF=200); URINE BENZODIAZEPINES NEGATIVE ng/ml (CUTOFF=200)
[2018-05-19] MEDS ORDERED: ALPRAZolam 0.25 MG TABLET PO ONE (00:15)
[2018-05-19 07:50] LABS: CHOLESTEROL 235 mg/dL (50-200); HDL CHOLESTEROL 29 mg/dL (40-60); TRIGLYCERIDES 232 mg/dL (0-150)
[2018-05-19 08:10] LABS: ANION GAP 6 MMOL/L (8-16); BLOOD UREA NITROGEN 18 mg/dL (7-18); CALCIUM 8.7 mg/dL (8.5-10.1); CHLORIDE 108 mmol/L (98-107); CO2 26 mmol/L (21-32); GLUCOSE,RANDOM 91 mg/dL (74-106); SODIUM 140 mmol/L (136-145)
--- NOTE | 2018-05-19 11:53 | CON.CARD ---
Consult Consult Specialty:: Cardiology Referred by:: Ananda Aguayo MD/Karen Kumar MD Reason for Consultation:: PAF->SR, palpitations - History of Present Illness Chief Complaint: Palpitations, dyspnea History of Present Illness: 36 yo male h/o HLP (intolerant to low dose Crestor due to Ha1c increase), SANTIAGO on cpap, Asthma, useed albuterol pump this AM and ran up the hill to his car; as he got to his car felt his heart beating fast and palpitations, dyspnea, lightheaded w/o true syncope, remained tachycardic and presented to ER. In R his HR was found in upper 120 and EKG was consistant with A Fib; pt received Cardizem IVP and PO for rate-control with spontaneous conversion. Reports recent weight gain and increased snoring and daytime somnolence despite cpap compliance. - History Source History Provided By: Patient Limitations to Obtaining History: No Limitations - Past Medical History Cardio/Vascular: Yes: AFIB, Hyperlipdemia Pulmonary: Yes: Asthma, Sleep Apnea - Alcohol/Substance Use Hx Alcohol Use: Yes (socially) History of Substance Use: reports: None - Smoking History Smoking history: Never smoked Have you smoked in the past 12 months: No Aproximately how many cigarettes per day: 0 Home Medications - Allergies Allergies/Adverse Reactions: Allergies Allergy/AdvReac Type Severity Reaction Status Date / Time theophylline Allergy Unknown Verified 05/18/18 10:06 - Home Medications Home Medications: Ambulatory Orders NK [No Known Home Medication] 05/28/16 Review of Systems - Review of Systems Cardiovascular: reports: Palpitations, Shortness of Breath Neurological: reports: Dizziness Vital Signs: Vital Signs Temperature 97.5 F L 05/19/18 10:00 Pulse Rate 80 05/19/18 10:00 Respiratory Rate 18 05/19/18 10:00 Blood Pressure 110/60 05/19/18 10:00 O2 Sat by Pulse Oximetry (%) 97 05/19/18 08:00 Constitutional: Yes: No Distress, Calm Neck: Yes: Supple Respiratory: Yes: Regular, CTA Bilaterally Gastrointestinal: Yes: Normal Bowel Sounds, Soft Cardiovascular: Yes: Regular Rate and Rhythm JVD: No Carotid Bruit: No Heart Sounds: Yes: S1, S2 Edema: No - Other Data Labs, Other Data: CBC, BMP 05/18/18 10:25 05/19/18 05:50 INR, PTT INR 0.97 (0.83-1.09) 05/18/18 10:25 Troponin, BNP 05/18/18 16:45 Troponin I < 0.02 Troponin, BNP 05/18/18 16:45 Troponin I < 0.02 Afib @ 127 -> NSR @ 78 Tele: NSR Problem List - Problems (1) Hyperlipidemia Code(s): E78.5 - HYPERLIPIDEMIA, UNSPECIFIED Qualifiers: Hyperlipidemia type: pure hypercholesterolemia Qualified Code(s): E78.00 - Pure hypercholesterolemia, unspecified; E78.0 - Pure hypercholesterolemia (2) SANITAGO (obstructive sleep apnea) Code(s): G47.33 - OBSTRUCTIVE SLEEP APNEA (ADULT) (PEDIATRIC) (3) Palpitations Code(s): R00.2 - PALPITATIONS (4) Paroxysmal atrial fibrillation with rapid ventricular response Code(s): I48.0 - PAROXYSMAL ATRIAL FIBRILLATION Assessment/Plan November 07, 2016 ETT: MPHR 84%, negative submaximal stress ECG for ischemia 05/18/2018 Echo: Normal LV size and fxn, tr-mild MR, normal atrial sizes 1. Palpitations referable to paroxysmal atrial fibrillation with RVR [id number]= 0 2. OSAS on cpap 3. Hyperlipidemia with reluctance to resume statin given Crestor-associated rise in Ha1c 4. Asthma P: 1. Prefers not to be placed on standing medications, if echo confirms normal heart will start Fleicanide 50 mg as needed for recurrence with pill in pocket strategy, advised to wear apple watch to detect PAF. 2. Given low risk stroke score, no anticoagulation is warranted 3. Sleep specialist f/u for cpap pressure uptitration 4. F/u with Dr. Han as outpatient tomorrow, trial of Livalo or Pravachol 5. Thank you for consultative opportunity
--- NOTE | 2018-05-19 12:41 | ECHO ---
Name: LUH SPENCER Exam:Adult Echocardiogram Study Date: 05/19/2018 08:49 AM Age: 37 yrs Reason For Study: PAROXYSMAL ATRIAL FIBRILLATION Height: 69 in Weight: 206 lb BSA: 2.1 m2 MMode/2D Measurements & Calculations IVSd: 0.85 cm Ao root diam: 2.5 cm LVIDd: 5.2 cm LA dimension: 3.3 cm LVIDs: 3.5 cm LVPWd: 0.79 cm EDV(Teich): 131.4 ml ESV(Teich): 50.9 ml Doppler Measurements & Calculations MV E max burke: 71.1 cm/sec PI end-d burke: 115.4 cm/sec MV A max burke: 55.8 cm/sec MV E/A: 1.3 MV dec time: 0.20 sec Med Peak E' Burke: 7.8 cm/sec Med E/e': 9.1 Lat Peak E' Burke: 10.4 cm/sec Lat E/e': 6.8 Procedure A two-dimensional transthoracic echocardiogram with color flow and Doppler was performed. The study w as technically difficult with many images being suboptimal in quality. Left Ventricle The left ventricular size, thickness and function are normal. The left ventricular ejection fraction is normal. Left Ventricular Filling pattern is normal for age. The left ventricular wall motion is kirill l. Right Ventricle The right ventricle is not well visualized. Atria Normal left and right atrial size and function. Mitral Valve There is trivial mitral valve thickening. There is no mitral valve stenosis. There is trace to mild m itral regurgitation. Tricuspid Valve There is trivial tricuspid valve thickening. There is no tricuspid stenosis. There was insufficient T R detected to calculate RV systolic pressure. Aortic Valve The aortic valve is not well visualized. No hemodynamically significant valvular aortic stenosis. No aortic regurgitation is present. Pulmonic Valve The pulmonic valve is not well visualized. There is no pulmonic valvular stenosis. There is no pulmon ic valvular regurgitation. Great Vessels The aortic root is normal size. Pericardium/Pleura There is no pericardial effusion. Interpretation Summary There is trace to mild mitral regurgitation. There was insufficient TR detected to calculate RV systolic pressure. Left Ventricular Filling pattern is normal for age. The left ventricular wall motion is normal. The left ventricular ejection fraction is normal. The left ventricular size, thickness and function are normal The study was technically difficult with many images being suboptimal in quality. The right ventricle is not well visualized. MD Efren Mcmahon 05/19/2018 12:41 PM
--- NOTE | 2018-05-19 13:34 | DS ---
Physical Examination Vital Signs: Vital Signs Temperature 97.5 F L 05/19/18 10:00 Pulse Rate 80 05/19/18 10:00 Respiratory Rate 18 05/19/18 10:00 Blood Pressure 110/60 05/19/18 10:00 O2 Sat by Pulse Oximetry (%) 97 05/19/18 08:00 Findings/Remarks: Pt w/o palpitations, lightheadedness, dizziness, CP. Pt states that yesterday episode was self triggered as he took an Albuterol nebulized treatment and then 2 puffs on Albuterol before walking up the hill ( towards his car). Pt case was reviewed with Dr. Engle, Echo report was reviewed, DC medication was reviewed. Pt's condition was reviewed with pt's nurse. Time spent for managing pt's care, including discharge,: over 50 minutes. Constitutional: Yes: No Distress, Calm Cardiovascular: Yes: Regular Rate and Rhythm, S1, S2 Respiratory: Yes: Regular, CTA Bilaterally. No: Rales Gastrointestinal: Yes: Normal Bowel Sounds, Soft. No: Tenderness Edema: No Neurological: Yes: Alert, Oriented Labs: CBC, BMP 05/18/18 10:25 05/19/18 05:50 Discharge Summary Reason For Visit: A FIB WITH RAPID VENTRICULAR RESPONSE Current Active Problems Atrial fibrillation with RVR (Acute) Hyperlipidemia (Acute) SANTIAGO (obstructive sleep apnea) (Acute) Paroxysmal atrial fibrillation with rapid ventricular response (Acute) Procedures: Principal: ECHO Hospital Course: Pt drove himself to ER for persistent palpitations, yesterday, after he took an Albuterol nebulized treatment and then 2 puffs on Albuterol before walking up the hill towards his car. In ER he was found in A Fib with RVR, received IV Cardizem and then 1 dose of PO Cardizem with conversion to NSR and good HR control; pt was admitted to Telemetry for monitoring. Pt was seen by Cardiology consult (Dr. Engle); no new episode of A Fib, Echo was considered nonsignificant ; patient was cleared for home discharge with PRN Flecainide for palpitations. Condition: Stable - Instructions Diet, Activity, Other Instructions: Keep well hydrated for the next several days. Low fat, low cholesterol. Avoid any strenuous activity until cleared by Dr Han Referrals: Mariya Han MD [Staff Physician] - (tomorrow- patient was already made appointment) Yesenia Kumar MD [Primary Care Provider] - (within one week; patient needs follow up on BPM and CPK.) Disposition: HOME - Home Medications Comprehensive Discharge Medication List: Ambulatory Orders See DC instructions
[2018-05-19 15:34] VITALS: BP 114/66; PULSE 84; TEMP 98
== END 2018-05-19 15:44 | disposition home or self-care (01) ==
LOC: JER 10:04 → JERBED 12:30 → J4S 14:08
PROVIDERS: ADMIT Internal Medicine; ATTEND Internal Medicine
PROC: 3E033GC Introduction of Other Therapeutic Substance into Peripheral Vein, Percutaneous Approach (ICD-10-PCS; principal; 2018-05-18)
PROC: 3E0337Z Introduction of Electrolytic and Water Balance Substance into Peripheral Vein, Percutaneous Approach (ICD-10-PCS; 2018-05-18)
DX: I48.0 Paroxysmal atrial fibrillation (principal); E78.5 Hyperlipidemia, unspecified; J45.909 Unspecified asthma, uncomplicated; K21.9 Gastro-esophageal reflux disease without esophagitis; G47.33 Obstructive sleep apnea (adult) (pediatric); E74.8 Other specified disorders of carbohydrate metabolism; R00.2 Palpitations; Z99.89 Dependence on other enabling machines and devices
CPT/HCPCS: 36415; 71045-TC-FY; 80048; 80053; 80061; 80307; 81003; 82550; 82553; 83721; 83735; 84439; 84443; 84481; 84484; 85025; 85610; 93005; 93010; 93306-TC; 94660; 99285-25; G0378; J7030

== ENCOUNTER 2018-08-17 17:37 | Emergency (ER) | payer OTHER ==
--- NOTE | 2018-08-17 18:29 | PDOC ---
Rapid Medical Evaluation Medical Evaluation: Allergies Allergy/AdvReac Type Severity Reaction Status Date / Time theophylline Allergy Unknown Verified 05/18/18 10:06 I have performed a brief in-person evaluation of this patient. The patient presents with a chief complaint of: Ate piece of starfruit candy around 3:30 PM which had nuts in it which patient was not aware of; afterward, felt SOB, throat closing and had emesis; took epi-pen on his own at 3:45; EMS gave patient Benadryl 50 mg IM as well Pertinent physical exam findings: In NAD, oropharynx clear, no angioedema, lungs clear I have ordered the following: Nothing The patient will proceed to the ED for further evaluation. 08/17/18 18:25
[2018-08-17 18:31] VITALS: BP 116/72; PULSE 83; TEMP 98.2; BMI 29.5
[2018-08-31] MEDS ORDERED: ALBUTEROL SO4 2.5/IPRATROPIUM 0.5 INH SOL 3 ML VIAL.NEB. NEB ONE (03:46)
== END 2018-08-17 19:41 | disposition left against medical advice (07) ==
LOC: JERFT 17:37
DX: T78.40XA Allergy, unspecified, initial encounter (principal); Z91.018 Allergy to other foods
CPT/HCPCS: 99281-25

== ENCOUNTER 2018-10-16 20:17 | Emergency (ER) | payer OTHER ==
[2018-10-16 20:36] VITALS: TEMP 98; BMI 30.2
--- NOTE | 2018-10-16 21:24 | PDOC ---
History of Present Illness - General Chief Complaint: Asthma Stated Complaint: ASTHMA Time Seen by Provider: 10/16/18 20:46 - History of Present Illness Initial Comments: Erasmo Sims is a 38yo man with a PMH of asthma, SANTIAGO, anxiety who presents reporting a recent asthma exacerbation that he feels may be due to exposure to cleaning products at home. He states that he had been feeling well earlier in the week, and he used several cleaning products on Thursday evening. On Thursday , he noticed a "deep wheeze" when he woke up, but he had a scheduled trip to [facility] so did not think much about it. However, the wheeze continued and he had accidentally packed his albuterol in his luggage so asked to be let off the plane. He went to urgent care and was given 60mg prednisone and a prescription for 40mg for the next 5 days. He went to [facility] on and felt well until he woke Thursday morning, when he again noticed wheezing. He was seen by a doctor there as well. He felt that he was unable to complete his vacation, so he returned home today. Mr Sims came directly to the ED from the airport. He denies any significant continued wheezing, SOB, or cough but was concerned that he may have had a dangerous chemical exposure from his cleaning products based on what he read online. He states that the two cleaning products were used separately on different locations in his home at different times; they were never mixed to his knowledge. In addition to the prednisone, Mr Sims has been using a daily steroid inhaler prescribed by his textile coating machine operator as well as albuterol every 4-6 hours due to concern for continued wheezing. He states that he has not felt short of breath during the episode, and definitely not over the past day or two. He is also concerned that swimming in a chlorinated pool may have contributed, but he states that he has never had asthma following chlorine exposure previously. Past History - Past Medical History Allergies/Adverse Reactions: Allergies Allergy/AdvReac Type Severity Reaction Status Date / Time theophylline Allergy Unknown Verified 08/17/18 18:26 shellfish derived Allergy Verified 08/17/18 18:26 nuts Allergy Uncoded 08/17/18 18:26 Home Medications: Ambulatory Orders Flecainide Acetate [Flecainide Acetate -] 50 mg PO BID PRN #14 tablet MDD 2 Diphenhydramine [Benadryl] 50 mg IM ONCE 08/17/18 EPINEPHrine (EPI-PEN 0.3MG) [Epipen 0.3MG -] 0.3 mg IM ASDIR 08/17/18 Anemia: No Asthma: Yes Cancer: No Cardiac Disorders: No CVA: No COPD: No CHF: No Dementia: No Diabetes: No GI Disorders: Yes (GERD) Disorders: No HTN: No Hypercholesterolemia: Yes Liver Disease: No Seizures: No Thyroid Disease: No - Surgical History Abdominal Surgery: No Appendectomy: No Cardiac Surgery: No Cholecystectomy: No Lung Surgery: No Neurologic Surgery: No Orthopedic Surgery: Yes (right miniscus removed) - Immunization History Immunization Up to Date: Yes - Suicide/Smoking/Psychosocial Hx Smoking Status: No Smoking History: Never smoked Have you smoked in the past 12 months: No Number of Cigarettes Smoked Daily: 0 Cigars Per Day: 0 Hx Alcohol Use: Yes (socially) Drug/Substance Use Hx: Yes (marijuana in high school) Substance Use Type: None Hx Substance Use Treatment: No Review of Systems - Review of Systems Comments:: General: No fevers, no chills, no weight or appetite change, no malaise HEENT: No changes in vision, no changes in hearing, no congestion, no sore throat CV: No chest pain, no palpitations, no LE edema Pulm: No SOB, no cough. +Wheezing GI: No nausea or vomiting, no change in bowel habits, no melena : No frequency, no urgency, no dysuria Musc: No back pain, no joint swelling, no recent injury Skin: No rash, no lesions, no erythema Endo: No excessive thirst, no heat/cold intolerance Heme: No unusual bruising or bleeding, no swollen glands Neuro: No syncope, no numbness/tingling, no focal weakness Vasc: No claudication Psych: No recent change in mood, no SI or HI *Physical Exam - Vital Signs Last Vital Signs Temp Pulse Resp BP Pulse Ox 98 F 102 H 19 148/90 100 10/16/18 20:32 10/16/18 20:32 10/16/18 20:32 10/16/18 20:32 10/16/18 20:32 - Physical Exam Comments: General: Comfortable, no acute distress HEENT: PERRL, EOMI, MMM, voice normal, normal neck ROM, no LAD Cards: Borderline tachy around 100, regular, no murmur appreciated Pulm: Comfortable on room air, clear to auscultation bilaterally w/ trace expiratory wheeze in LLL, good air movement appreciated b/l Ext: Atraumatic. No LE edema. ROM intact. Vasc: Extremities WWP. P Skin: Normal color, no rashes or lesions Neuro: A&Ox3, CN grossly intact, normal speech, motor/sensory grossly intact and symmetric Psych: Anxious Medical Decision Making - Medical Decision Making 10/16/18 21:15 Erasmo Sims is a 38yo man with a PMH of asthma, SANTIAGO, anxiety who presents reporting a recent asthma exacerbation that he feels may be due to exposure to cleaning products at home. He has been taking prednisone that was prescribed at urgent care (will finish 5 days tomorrow) and his symptoms have resolved. He currently has no complaints. - Lung exam w/ adequate air movement over all lung marin. Trace expiratory wheeze but satting well on RA, normal RR, no sign of current asthma exacerbation. Denies any SOB - Discussed that using cleaning products in his home could potentially have triggered an asthma exacerbation but he was very unlikely to have had any dangerous chemical exposure, especially as the cleaning products were not used simultaneously or mixed - Encouraged to continue taking his home inhalers as prescribed and to finish the prescribed prednisone - Advised to follow up with his PMD and textile coating machine operator if he is concerned about additional allergy/asthma triggers. - Will discharge home with PMD follow up. Discussed with Dr Mazariegos. Eboni Lomeli PGY1 *DC/Admit/Observation/Transfer Diagnosis at time of Disposition: Asthma - Discharge Dispostion Disposition: HOME Condition at time of disposition: Stable Decision to Admit order: No - Referrals Referrals: Yesenia Kumar MD [Primary Care Provider] - - Patient Instructions Printed Discharge Instructions: Asthma -- Adult Additional Instructions: Discharge Instructions: You were seen in the emergency department following a recent asthma exacerbation. You no longer have a wheeze on lung exam. Please continue to take your daily steroid inhaler as prescribed. Use your albuterol every 4hrs as needed for continued wheezing and shortness of breath. Make sure you complete your prescription of prednisone tomorrow. Make an appointment to see your primary doctor and ENT/textile coating machine operator within the next week. You may consider getting additional allergy testing to determine if any ingredients in the cleaning products you used are causing your asthma symptoms. Seek immediate care if you have worsening symptoms, severe wheezing, difficultly breathing, or any other medical emergency. - Post Discharge Activity
[2018-10-17 00:02] VITALS: BP 130/82; PULSE 87
--- NOTE | 2018-10-17 00:32 | PDOC ---
Documentation entered by Priyanka Wan SCRIBE, acting as scribe for Sandeep Mazariegos MD. Sandeep Mazariegos MD: This documentation has been prepared by the [employer] ace Nirvannie, SCRIBE, under my direction and personally reviewed by me in its entirety. I confirm that the documentation accurately reflects all work, treatment, procedures, and medical decision making performed by me. Attending Attestation - Resident Resident Name: Eboni Lomeli - ED Attending Attestation I have performed the following: I have examined & evaluated the patient, The case was reviewed & discussed with the resident, I agree w/resident's findings & plan - HPI HPI: 10/16/18 23:06 The patient is a 38 year old male, with a significant past medical history of H. pylori, GERD, anxiety, and asthma (on daily steroid inhaler and singulair, never intubated, admitted to the ICU as a child), who presents to the emergency department with resolved wheezing. As per patient, he was cleaning 6 days ago using Lysol and Clorox/Tilex which he has never used together before. The next day the patient was set to fly to [facility] for vacation but once on board, he realized his inhaler was in his suitcase checked in and exited the plane because he was concerned may start to wheeze on the flight. He presented to urgent care that day with mild wheezing and was given prednisone 60mg and nebs and was given prescription for prednisone 40mg daily. He rescheduled his flight for the next day to go to [facility] again 4 days ago. While in [facility], he experienced a temporary "deep wheeze" while in the pool which prompted him to go to a hospital in [facility] where he was evaluated and discharged. Out of concern that he could have the wheezing again, he purchased a flight back home to [facility] and presents here after returning from the airport. He reports that he read about Lysol and Clorox triggering asthma and that there may be some tests to see if this is the case and presents to the ED with the Lysol and Clorox containers. He denies current wheezing, SOB, chest pain, cough, fevers, or chills. He denies any recent headache or dizziness. He denies any recent nausea, vomit, diarrhea or constipation. He denies any recent dysuria, frequency, urgency or hematuria. Allergies: Theophylline Past surgical history: None reported. Social History: Nonsmoker. Denies EtOH use and recreational drug use. Primary Care Physician: Dr. Ananda Aguayo - Physicial Exam PE: 10/16/18 23:07 GENERAL: Awake, alert, and fully oriented, in no acute distress HEAD: No signs of trauma EYES: PERRLA, EOMI, sclera anicteric, conjunctiva clear ENT: Oropharynx clear without exudates. Moist mucosa NECK: Normal ROM, supple, no lymphadenopathy, JVD, or masses LUNGS: Breath sounds equal, clear to auscultation bilaterally. No wheezes, and no crackles HEART: Regular rate and rhythm, normal S1 and S2, no murmurs, rubs or gallops ABDOMEN: Soft, nontender, normoactive bowel sounds. No guarding, no rebound. No masses EXTREMITIES: Normal range of motion, no edema. No cords, erythema, or tenderness NEUROLOGICAL: Normal speech, cranial nerves intact, negative pronator drift, 5/ 5 strength in all 4 extremities, normal sensation to light touch in all 4 extremities, normal cerebellar exam, normal gait, normal tone SKIN: Warm, Dry, normal turgor, no rashes or lesions noted. - Medical Decision Making 10/17/18 00:27 38yo M hx asthma presents to the ED, asymptomatic but concerned that cleaning products may have triggered an asthma exacerbation. States he has only ever had asthma exacerbations 2/2 the common cold and was alarmed that he did not have a cold preceding this exacerbation. He is currently on day 4 of his predisone course and feeling much better. Initially mildly tachycardic on arrival and hypertensive, most likely 2/2 anxiety. Rpt vitals normalized w/o intervention Discussed at length with patient that there can be multiple triggers for asthma exacerbations, including allergies, weather change, exposures but that there was no way to test for what the exact precipitating factor is. Reassured pt that in the absence of asthma symtoms here, wheezing, crackles, rales, work of breathing, and with normal vitals that he is safe for DC home with close PMD f/u. Pt in agreement with plan, encouraged to continue prednosine and use albuterol PRN. I discussed the physical exam findings, ancillary test results and final diagnoses with the patient. I answered all of the patient's questions. The patient was satisfied with the care received and felt comfortable with the discharge plan and treatment plan. The patient will call their primary care physician within 24 hours to arrange follow-up and will return to the Emergency Department with any new, persistent or worsening symptoms.
== END 2018-10-16 22:00 | disposition home or self-care (01) ==
LOC: JER 20:17
PROC: 3E0F7GC Introduction of Other Therapeutic Substance into Respiratory Tract, Via Natural or Artificial Opening (ICD-10-PCS; principal; 2018-10-16)
PROC: 3E0F7GC Introduction of Other Therapeutic Substance into Respiratory Tract, Via Natural or Artificial Opening (ICD-10-PCS; 2018-10-16)
DX: F41.9 Anxiety disorder, unspecified (principal); G47.33 Obstructive sleep apnea (adult) (pediatric); Z99.89 Dependence on other enabling machines and devices; Z87.19 Personal history of other diseases of the digestive system
CPT/HCPCS: 99282-25

== ENCOUNTER 2018-10-17 03:55 | Emergency (ER) | payer OTHER ==
--- NOTE | 2018-10-17 04:07 | PDOC ---
History of Present Illness - General Stated Complaint: ASTHMA Time Seen by Provider: 10/17/18 04:07 - History of Present Illness Initial Comments: 10/17/18 04:07 Mr. Sims is a 38 yo male w/ pmh of GERD, anxiety, H. pylori, and asthma (on daily steroid inharler and singulair; never intubated) who presents to ED for second time today with complaints of wheezing. Patient reports he was normal state of health until Thursday 10/12 when he used cleaning solution that irritated his lungs. Patient reports he had a wheeze the next day; attempted to take a flight on vacation however had to get off plan as he realized inhaler was checked in his luggage. Patient went to urgent care and was given prednisone Rx; rescheduled flight next day however returned early as wheezes persisted. Patient was here earlier today and discharged following negative exam however represented as his CPAP machine smelled of mold and he started to have increased difficulty breathing again following attempting to use it. Also endorses going on [employer] and believes that this made him more anxious. Reports he was saturating 98% with his home O2 monitor prior to presentation. Currently complaining of increased work of breathing. The patient denies chest pain, headache and dizziness. Denies fever, chills, nausea, vomit, diarrhea and constipation. Denies dysuria, frequency, urgency and hematuria. Past History - Past Medical History Allergies/Adverse Reactions: Allergies Allergy/AdvReac Type Severity Reaction Status Date / Time theophylline Allergy Unknown Verified 08/17/18 18:26 shellfish derived Allergy Verified 08/17/18 18:26 nuts Allergy Uncoded 08/17/18 18:26 Home Medications: Ambulatory Orders NK [No Known Home Medication] 10/17/18 Anemia: No Asthma: Yes Cancer: No Cardiac Disorders: No CVA: No COPD: No CHF: No Dementia: No Diabetes: No GI Disorders: Yes (GERD) Disorders: No HTN: No Hypercholesterolemia: Yes Liver Disease: No Seizures: No Thyroid Disease: No - Surgical History Abdominal Surgery: No Appendectomy: No Cardiac Surgery: No Cholecystectomy: No Lung Surgery: No Neurologic Surgery: No Orthopedic Surgery: Yes (right miniscus removed) - Immunization History Immunization Up to Date: Yes - Suicide/Smoking/Psychosocial Hx Smoking Status: No Smoking History: Never smoked Have you smoked in the past 12 months: No Number of Cigarettes Smoked Daily: 0 Cigars Per Day: 0 Hx Alcohol Use: Yes (socially) Drug/Substance Use Hx: Yes (marijuana in high school) Substance Use Type: None Hx Substance Use Treatment: No Review of Systems - Review of Systems Comments:: 10/17/18 04:21 GENERAL/CONSTITUTIONAL: No fever or chills. No weakness. HEAD, EYES, EARS, NOSE AND THROAT: No change in vision. No ear pain or discharge. No sore throat. CARDIOVASCULAR: No chest pain or shortness of breath RESPIRATORY: +Respiratory symptoms as described. No cough, or hemoptysis. GASTROINTESTINAL: No nausea, vomiting, diarrhea or constipation. GENITOURINARY: No dysuria, frequency, or change in urination. MUSCULOSKELETAL: No joint or muscle swelling or pain. No neck or back pain. SKIN: No rash NEUROLOGIC: No headache, vertigo, loss of consciousness, or change in strength/ sensation. ENDOCRINE: No increased thirst. No abnormal weight change HEMATOLOGIC/LYMPHATIC: No anemia, easy bleeding, or history of blood clots. ALLERGIC/IMMUNOLOGIC: No hives or skin allergy. *Physical Exam - Physical Exam Comments: 10/17/18 04:22 GENERAL: +Patient visibly anxious. Awake, alert, and fully oriented, in no acute distress HEAD: No signs of trauma, normocephalic, atraumatic EYES: PERRLA, EOMI, sclera anicteric, conjunctiva clear ENT: Auricles normal inspection, hearing grossly normal, nares patent, oropharynx clear without exudates. Moist mucosa NECK: Normal ROM, supple, no lymphadenopathy, JVD, or masses LUNGS: No distress, speaks full sentences, clear to auscultation bilaterally HEART: Regular rate and rhythm, normal S1 and S2, no murmurs, rubs or gallops, peripheral pulses normal and equal bilaterally. ABDOMEN: Soft, nontender, normoactive bowel sounds. No guarding, no rebound. No masses EXTREMITIES: Normal inspection, Normal range of motion, no edema. No clubbing or cyanosis. NEUROLOGICAL: Cranial nerves II through XII grossly intact. Normal speech, normal gait, no focal sensorimotor deficits SKIN: Warm, Dry, normal turgor, no rashes or lesions noted. Medical Decision Making - Medical Decision Making 10/17/18 04:57 Mr. Sims is a 38 yo male w/ pmh as described who presents for evaluation of symptoms concerning for asthma exacerbation vs. anxiety vs. allergic symptoms. Patient evaluated with CXR and given home xanax dose and duoneb for symptomatic relief. Upon repeat exam patient complaining of nasal congestion/swelling he believes has been contributing to his symptoms. Also reports he has become more relaxed / tired at this time. Currently pending CXR for further evaluation and receiving duoneb. 10/17/18 05:12 CXR negative. Patient reporting improvement of symptoms. Patient encouraged to continue home medications as written and follow-up with PCP tomorrow for further evaluation. *DC/Admit/Observation/Transfer Diagnosis at time of Disposition: Shortness of breath - Discharge Dispostion Disposition: HOME - Referrals Referrals: Yesenia Kumar MD [Staff Physician] - [facility] [place] [Provider Group] - Patient Instructions Printed Discharge Instructions: DI for Shortness of Breath Additional Instructions: You were evaluated today in the ER for your symptoms. We performed chest Xray with no concerning findings and your lungs were clear following 2 breathing treatments. We do not believe any emergent process is occurring at this time. Please follow-up with primary care provider tomorrow for further evaluation. We have also provided you with information for our internal medicine clinic you may use if you would like. Take all home medications as proscribed and return to ER if any further difficulty breathing, fever, chills, or other concerning symptoms. - Post Discharge Activity
[2018-10-17] MEDS ORDERED: ALPRAZolam 0.25 MG TABLET PO ONE (04:12)
[2018-10-17] MEDS ORDERED: ALBUTEROL SO4 2.5/IPRATROPIUM 0.5 INH SOL 3 ML VIAL.NEB. NEB ONE ×4 (04:12→05:30)
[2018-10-17 04:28] VITALS: TEMP 98; BMI 30.2
--- NOTE | 2018-10-17 04:32 | PDOC ---
Attending Attestation - Resident Resident Name: Joel Mane - ED Attending Attestation I have performed the following: I have examined & evaluated the patient, The case was reviewed & discussed with the resident, I agree w/resident's findings & plan, Exceptions are as noted - HPI HPI: 10/17/18 06:29 38yo M hx GERD, anxiety, H. pylori, SANTIAGO on nightly CPAP, and asthma (on daily steroid inharler and singulair; never intubated) presents to the ED with SOB and "anxiety." Pt reports symptoms improved en route to the ED. Pt was seen earlier by me alvarez for wheezing and concern that cleaning products triggered an asthma exacerbation. Denies SOB at this time. Denies fevers, chills, cp, headache, weakness/numbness, abd pain, LE edema. - Physicial Exam PE: 10/17/18 06:32 GENERAL: Awake, alert, and fully oriented, in no acute distress but appears mildly anxious HEAD: No signs of trauma EYES: PERRLA, EOMI, sclera anicteric, conjunctiva clear ENT: Oropharynx clear without exudates. Moist mucosa LUNGS: Breath sounds equal, clear to auscultation bilaterally. Mild exp wheeze at L lung base, and no crackles. No WOB HEART: Regular rate and rhythm, normal S1 and S2, no murmurs, rubs or gallops ABDOMEN: Soft, nontender, normoactive bowel sounds. No guarding, no rebound. No masses EXTREMITIES: Normal range of motion, no edema. No cords, erythema, or tenderness NEUROLOGICAL: Normal speech, cranial nerves intact, equal strength and sensation b/l SKIN: Warm, Dry, normal turgor, no rashes or lesions noted. - Medical Decision Making 10/17/18 06:36 38yo M hx MMP including asthma and SANTIAGO presents to the ED for resolved SOB Vitals wnl Exam with mild exp wheeze initially, resolved with neb treatment CXR clear Vitals wnl Given home dose of xanax Pt feeling better, requests DC home I discussed the physical exam findings, ancillary test results and final diagnoses with the patient. I answered all of the patient's questions. The patient was satisfied with the care received and felt comfortable with the discharge plan and treatment plan. The patient will call their primary care physician within 24 hours to arrange follow-up and will return to the Emergency Department with any new, persistent or worsening symptoms. ALso provided referral for resident clinic as pt states he has trouble getting a timely appt to see his PMD.
[2018-10-17] MEDS ORDERED: ALPRAZolam 0.25 MG TABLET ONE (04:43)
[2018-10-17 06:05] VITALS: BP 133/89; PULSE 68
== END 2018-10-17 06:00 | disposition home or self-care (01) ==
LOC: JER 03:55
DX: J45.909 Unspecified asthma, uncomplicated (principal); R06.02 Shortness of breath; G47.33 Obstructive sleep apnea (adult) (pediatric); Z99.89 Dependence on other enabling machines and devices
CPT/HCPCS: 71046-TC-FY; 99282-25

== ENCOUNTER 2018-10-20 01:00 | Emergency (ER) | payer OTHER ==
[2018-10-20 01:55] VITALS: BP 112/72; PULSE 81; TEMP 98.7; BMI 29.5
[2018-10-20 02:31] LABS: BASO % 0.8 % (0-2.0); EOS % 2.3 % (0-4.5); HEMATOCRIT 43.7 % (35.4-49); HEMOGLOBIN 14.7 GM/dL (11.7-16.9); LYMPH % 41.1 % (8-40); MCH 30.4 pg (25.7-33.7); MCHC 33.5 g/dl (32.0-35.9); MEAN CELL VOLUME 90.6 fl (80-96); MEAN PLT VOLUME 8.1 fl (7.5-11.1); MONO % 8.1 % (3.8-10.2); NEUT % 47.7 % (42.8-82.8); PLATELET COUNT 279 K/MM3 (134-434); RBC 4.83 M/mm3 (4.00-5.60); RDW 13.3 % (11.9-15.9); WHITE BLOOD COUNT 9.2 K/mm3 (4.0-10.0)
[2018-10-20 03:08] LABS: CALCIUM 8.8 mg/dL (8.5-10.1); CREATININE 0.9 mg/dL (0.55-1.3); POTASSIUM 4.1 mmol/L (3.5-5.1)
--- NOTE | 2018-10-20 03:22 | PDOC ---
Documentation entered by David Thornton SCRIBE, acting as scribe for Leigh Gonzalez DO. Leigh Gonzalez DO: This documentation has been prepared by the Norberto ace Matthew, SCRIBE, under my direction and personally reviewed by me in its entirety. I confirm that the documentation accurately reflects all work, treatment, procedures, and medical decision making performed by me. History of Present Illness - General Chief Complaint: Muscle Cramping Stated Complaint: BI LATERAL LEG CRAMPING Time Seen by Provider: 10/20/18 01:46 History Source: Patient Exam Limitations: No Limitations - History of Present Illness Initial Comments: 10/20/18 02:04 Patient is a 38 year male with a significant past medical history of GERD, anxiety, H. pylori, and asthma, who presents to the ED with complaints of bilateral leg pain that began x2 days ago. Patient returning on a flight 2 days ago and has been experiencing intermittent bilateral upper leg pain since. He reports initially thinking nothing of the pain but was advised to come into the ED by a friend who works in a medical office, causing him to become worried. Denies chest pain, sob. Denies nausea, vomiting. Denies contact with sick individuals, out of state travelling. Denies dysuria, hematuria. Denies constipation, diarrhea. Denies any other symptoms. Allergies: Theophylline Social history: No smoking. No alcohol. No illicit drugs. Surgical history: None PMD: Dr. Kumar Past History - Past Medical History Allergies/Adverse Reactions: Allergies Allergy/AdvReac Type Severity Reaction Status Date / Time theophylline Allergy Unknown Verified 10/20/18 01:54 shellfish derived Allergy Verified 10/20/18 01:54 nuts Allergy Uncoded 10/20/18 01:54 Home Medications: Ambulatory Orders NK [No Known Home Medication] 10/17/18 Anemia: No Asthma: Yes Cancer: No Cardiac Disorders: No CVA: No COPD: No CHF: No Dementia: No Diabetes: No GI Disorders: Yes (GERD) Disorders: No HTN: No Hypercholesterolemia: Yes Liver Disease: No Seizures: No Thyroid Disease: No - Surgical History Abdominal Surgery: No Appendectomy: No Cardiac Surgery: No Cholecystectomy: No Lung Surgery: No Neurologic Surgery: No Orthopedic Surgery: Yes (right miniscus removed) - Immunization History Immunization Up to Date: Yes - Suicide/Smoking/Psychosocial Hx Smoking Status: No Smoking History: Never smoked Have you smoked in the past 12 months: No Number of Cigarettes Smoked Daily: 0 Cigars Per Day: 0 Information on smoking cessation initiated: No Hx Alcohol Use: No Drug/Substance Use Hx: No Substance Use Type: None Hx Substance Use Treatment: No Review of Systems - Review of Systems Able to Perform ROS?: Yes Comments:: 10/20/18 02:04 GENERAL/CONSTITUTIONAL: No fever or chills. No weakness. HEAD, EYES, EARS, NOSE AND THROAT: No change in vision. No ear pain or discharge. No sore throat. GASTROINTESTINAL: No nausea, vomiting, diarrhea or constipation. GENITOURINARY: No dysuria, frequency, or change in urination. CARDIOVASCULAR: No chest pain or shortness of breath. RESPIRATORY: No cough, wheezing, or hemoptysis. MUSCULOSKELETAL: +Bilateral upper leg pain. No joint or muscle swelling. No neck or back pain. SKIN: No rash NEUROLOGIC: No headache, vertigo, loss of consciousness, or change in strength/ sensation. ENDOCRINE: No increased thirst. No abnormal weight change. HEMATOLOGIC/LYMPHATIC: No anemia, easy bleeding, or history of blood clots. ALLERGIC/IMMUNOLOGIC: No hives or skin allergy. *Physical Exam - Vital Signs Last Vital Signs Temp Pulse Resp BP Pulse Ox 98.7 F 81 18 112/72 97 10/20/18 01:00 10/20/18 01:00 10/20/18 01:00 10/20/18 01:00 10/20/18 01:00 - Physical Exam Comments: 10/20/18 02:04 GENERAL: Awake, in no acute distress HEAD: No signs of trauma EYES: PERRLA, EOMI, sclera anicteric, conjunctiva clear, visual acuity grossly intact ENT: Auricles normal inspection, hearing grossly normal, nares patent, oropharynx clear without exudates. Moist mucosa NECK: Normal ROM, supple, no lymphadenopathy, JVD, or masses LUNGS: Breath sounds equal, clear to auscultation bilaterally. No wheezes, and no crackles. Normal work of breathing. HEART: Regular rate and rhythm, normal S1 and S2, no murmurs, rubs or gallops ABDOMEN: Soft, nontender, normoactive bowel sounds. No guarding, no rebound. No masses. Non-distended. CHEST WALL: BACK: No midline tenderness. EXTREMITIES: Normal range of motion, no edema. No clubbing or cyanosis. No erythema, or tenderness NEUROLOGICAL: Alert, and fully oriented x4, Cranial nerves II through XII grossly intact. Normal speech, normal gait. DTRs 2/4 bilaterally. SKIN: Warm, Dry, normal turgor, no rashes or lesions noted. ED Treatment Course - LABORATORY CBC & Chemistry Diagram: 10/20/18 02:24 10/20/18 02:24 - ADDITIONAL ORDERS Additional order review: Laboratory Results 10/20/18 10/20/18 02:24 02:24 D-Dimer < 215 Sodium 139 Potassium 4.1 Chloride 107 Carbon Dioxide 27 Anion Gap 4 L BUN 20 H Creatinine 0.9 Est GFR (CKD-EPI)AfAm 126.02 Est GFR (CKD-EPI)NonAf 108.73 Random Glucose 92 Calcium 8.8 Creatine Kinase 133 10/20/18 02:24 RBC 4.83 MCV 90.6 MCHC 33.5 RDW 13.3 MPV 8.1 Neutrophils % 47.7 Lymphocytes % 41.1 H Monocytes % 8.1 Eosinophils % 2.3 Basophils % 0.8 Medical Decision Making - Medical Decision Making 10/20/18 03:17 38-year-old otherwise healthy male with intermittent bilateral leg cramping Potassium as well as d-dimer are within normal limits Patient is asymptomatic at this time He will be discharged home and advised to follow-up should he develop any worsening or steady pain in the legs or chest pain/shortness of breath *DC/Admit/Observation/Transfer Diagnosis at time of Disposition: Leg cramps - Discharge Dispostion Disposition: HOME Condition at time of disposition: Good Decision to Admit order: No - Referrals Referrals: Yesenia Kumar MD [Primary Care Provider] - - Patient Instructions Printed Discharge Instructions: DI for Nocturnal Leg Cramps Additional Instructions: If you develop chest pain or shortness of breath return to the emergency department. Otherwise follow-up with your regular physician. - Post Discharge Activity - Attestations Scribe Attestion: 10/20/18 02:05 Documentation prepared by David Thornton, acting as bio medical technician for Leigh Gonzalez DO. Physician Attestion: 10/20/18 03:20 IDr Leigh, attest that this document has been prepared under my direction and personally reviewed by me in its entirety. I further attest, that it accurately reflects all work, procedures and medical decision making performed by me.
== END 2018-10-20 03:39 | disposition home or self-care (01) ==
LOC: JER 01:00
DX: R25.2 Cramp and spasm (principal); K21.9 Gastro-esophageal reflux disease without esophagitis; J45.909 Unspecified asthma, uncomplicated; E78.00 Pure hypercholesterolemia, unspecified; F41.9 Anxiety disorder, unspecified
CPT/HCPCS: 36415; 80048; 82550; 85025; 85379; 99282-25

== ENCOUNTER 2019-06-05 02:12 | Emergency (ER) | payer OTHER ==
[2019-06-05 02:58] VITALS: TEMP 97.7; BMI 29.5
[2019-06-05] MEDS ORDERED: ALBUTEROL SO4 2.5/IPRATROPIUM 0.5 INH SOL 3 ML VIAL.NEB. NEB ONE ×2 (03:21→03:30)
[2019-06-05] MEDS ORDERED: predniSONE 20 MG TABLET (UD) PO ONE (03:43)
[2019-06-05] MEDS ORDERED: predniSONE 20 MG TABLET (UD) ONE (03:51)
[2019-06-05 04:09] VITALS: BP 130/81; PULSE 80
--- NOTE | 2019-06-05 04:35 | PDOC ---
History of Present Illness - General Chief Complaint: Asthma Stated Complaint: DIFFICLTY BREATHING Time Seen by Provider: 06/05/19 02:37 Past History - Past Medical History Allergies/Adverse Reactions: Allergies Allergy/AdvReac Type Severity Reaction Status Date / Time theophylline Allergy Unknown Verified 06/05/19 02:25 shellfish derived Allergy Verified 06/05/19 02:25 nuts Allergy Uncoded 06/05/19 02:25 Home Medications: Ambulatory Orders predniSONE [Deltasone -] 40 mg PO DAILY 4 Days #8 tablet 06/05/19 Anemia: No Asthma: Yes Cancer: No Cardiac Disorders: No CVA: No COPD: No CHF: No Dementia: No Diabetes: No GI Disorders: Yes (GERD) Disorders: No HTN: No Hypercholesterolemia: Yes (Slightly elevated) Liver Disease: No Seizures: No Thyroid Disease: No - Surgical History Abdominal Surgery: No Appendectomy: No Cardiac Surgery: No Cholecystectomy: No Lung Surgery: No Neurologic Surgery: No Orthopedic Surgery: Yes (right miniscus removed) - Immunization History Immunization Up to Date: Yes - Psycho Social/Smoking Cessation Hx Smoking Status: No Smoking History: Never smoked Have you smoked in the past 12 months: No Number of Cigarettes Smoked Daily: 0 Cigars Per Day: 0 Information on smoking cessation initiated: No Hx Alcohol Use: No Drug/Substance Use Hx: No Substance Use Type: None Hx Substance Use Treatment: No *Physical Exam - Vital Signs Last Vital Signs Temp Pulse Resp BP Pulse Ox 97.7 F 80 18 130/81 98 06/05/19 02:25 06/05/19 04:08 06/05/19 04:08 06/05/19 04:08 06/05/19 04:08 ED Treatment Course - Medications Given in the ED: ED Medications Discontinued Medications Generic Name Dose Route Start Last Admin Trade Name Freq PRN Reason Stop Dose Admin Albuterol/Ipratropium 1 amp 06/05/19 03:30 06/05/19 03:29 Duoneb - NEB 06/05/19 03:31 1 amp NOW ONE Administration Prednisone 40 mg 06/05/19 03:43 06/05/19 04:07 Deltasone - PO 06/05/19 03:44 40 mg ONCE ONE Administration Medical Decision Making - Medical Decision Making 06/05/19 04:35 HPI: 38yo M hx asthma (noncompliant with inhaled steroid, uses his albuterol inhaler 3x/day) and anxiety on Xanax presents from home requesting a nebulizer treatment for his asthma and "wheezing" x1 day. States was watching TV this PM and suddenly felt like he was severely wheezing, causing him to have difficulty breathing, causing him to become really anxious making the situation worse. Pt took a half inhalation of his albuterol inhaler then called 911. Pt had already used his albuterol this AM and this afternoon prior to episode. Pt was in [facility] prior to episode. Pt repeatedly states that he is wheezing and all he wants is a nebulizer. Denies WILDER, orthopnea, hx DVT/PE, recent travel, sick contacts, hormone use, leg swelling, recent surgery, fever, chills, fatigue, headache, dizziness, syncope, numbness/tingling, weakness, vision changes, cough, chest pain, palpitations, abdominal pain, blood in stool, diarrhea, constipation, nausea, vomiting, dysuria, hematuria, confusion. ROS: Constitutional: Negative for chills, fever, fatigue, diaphoresis. HENT: Negative for sore throat, rhinorrhea, congestion. Eyes: Negative for visual disturbance. Respiratory: Positive for shortness of breath, and wheezing. Negative for cough. Cardiovascular: Negative for chest pain, palpitations, and leg swelling. Gastrointestinal: Negative for abdominal pain, blood in stool, constipation, diarrhea, nausea, and vomiting. Genitourinary: Negative for dysuria, flank pain, and hematuria. Musculoskeletal: Negative for myalgias, back pain, and neck pain. Skin: Negative for rash. Neurological: Negative for light-headedness, dizziness, vertigo, syncope, weakness, numbness and headaches. Psychiatric/Behavioral: Positive for anxiety. Negative for behavioral problems and confusion. PE: Gen: Alert, NAD, anxious but comfortable-appearing. HEENT: PERRL, EOMI, MMM, NCAT. No conjunctival pallor. Sclera are non-icteric. Oropharynx is clear. CV: Regular rate and rhythm. No murmurs, rubs, or gallops. PULM: No resp distress. CTAB, no tightness, wheezes, rales, or rhonchi. Speaking in full sentences. ABD: soft, NT/ND, no rebound tenderness or guarding, no CVA tenderness. BACK: No TTP of c/t/l-spine. No step-offs or deformities. MSK: No bony deformities. 2+ pulses in all extremities. NEURO: AAOx3. PERRL. No gross CN deficits. Strength and sensation grossly intact throughout. EXTREMITIES: No cyanosis. No clubbing. No edema. No calf tenderness. PSYCH: Agitated anxious mood and normal thought pattern. SKIN: Warm and dry. Normal capillary refill. No rashes. No jaundice. MDM: 38yo M hx asthma (noncompliant with inhaled steroid, uses his albuterol inhaler 3x/day) and anxiety on Xanax presents from home requesting a nebulizer treatment for his asthma and "wheezing" x1 day. Slightly tachycardic to 94, other VSS, afebrile, anxious-appearing, lungs CTAB. Presentation and physical exam most consistent with panic attack. Lungs CTAB, but due to pt's hx of asthma and stated wheezing and shortness of breath, will give duonebs and prednisone and reassess. No CP, WILDER, orthopnea, fever, chills, cough, PE RFs, or cardiac RFs concerning for ACS/DC, arrhythmia, PE, or PNA. -EKG reviewed: NSR, 81bpm, normal axis, normal intervals, no e/o acute ischemia , no significant change when compared to 05/18/18. -Duonebs x1, prednisone -Dispo: pending reassessment Pt feeling much better s/p duonebs and prednisone. States wheezing and difficulty breathing resolved. Lungs remain CTAB. Less anxious-appearing, tachycardia resolved. Educated pt on asthma medications, f/u with PCP, and anxiety. Discussed role of inhaled steroid medication vs albuterol inhaler and pt still refuses to use his prescribed inhaled steroid (although states he has at home). Will dc home with PCP f/u and Prednisone rx. Return precautions given. Pt understands all dc instructions and all questions were answered. Discharge - Discharge Information Problems reviewed: Yes Clinical Impression/Diagnosis: Asthma Condition: Improved Disposition: HOME - Admission No - Additional Discharge Information Prescriptions: predniSONE [Deltasone -] 40 mg PO DAILY 4 Days #8 tablet - Follow up/Referral Referrals: Clau Jenkins [Primary Care Provider] - - Patient Discharge Instructions Patient Printed Discharge Instructions: Asthma -- Adult Additional Instructions: You have been seen in the Emergency Department for your asthma. Take Prednisone as prescribed. Use your albuterol as prescribed as needed for wheezing and shortness of breath. Follow-up with your primary care doctor this week. Return to the Emergency Department immediately for any new or worsening symptoms including severe wheezing, difficulty breathing, or chest pain. - Post Discharge Activity
--- NOTE | 2019-06-05 17:00 | EKG ---
Test Reason : Blood Pressure : / mmHG Vent. Rate : 081 BPM Atrial Rate : 081 BPM P-R Int : 144 ms QRS Dur : 114 ms QT Int : 386 ms P-R-T Axes : 045 065 047 degrees QTc Int : 448 ms NORMAL SINUS RHYTHM NORMAL ECG WHEN COMPARED WITH ECG OF 18-MAY-2018 13:13, NO SIGNIFICANT CHANGE WAS FOUND Confirmed by VIN ATKINSON MD ([id number]) on 06/05/2019 5:00:14 PM Referred By: Confirmed By:VIN ATKINSON MD
== END 2019-06-05 04:59 | disposition home or self-care (01) ==
LOC: JER 02:12
PROC: 3E0F7GC Introduction of Other Therapeutic Substance into Respiratory Tract, Via Natural or Artificial Opening (ICD-10-PCS; principal; 2019-06-05)
DX: J45.909 Unspecified asthma, uncomplicated (principal); F41.9 Anxiety disorder, unspecified; Z91.013 Allergy to seafood; Z91.018 Allergy to other foods; Z88.8 Allergy status to other drugs, medicaments and biological substances
CPT/HCPCS: 93005; 93010; 99282-25

== ENCOUNTER 2019-07-26 16:28 | Emergency (ER) | payer OTHER ==
[2019-07-26 16:36] VITALS: BP 139/79; PULSE 88; TEMP 97.9; BMI 29.5
--- NOTE | 2019-07-26 16:37 | PDOC ---
Rapid Medical Evaluation Chief Complaint: Cold Symptoms Time Seen by Provider: 07/26/19 16:32 Medical Evaluation: Allergies Allergy/AdvReac Type Severity Reaction Status Date / Time theophylline Allergy Unknown Verified 06/05/19 02:25 shellfish derived Allergy Verified 06/05/19 02:25 nuts Allergy Uncoded 06/05/19 02:25 07/26/19 16:35 Pt c/o: cough, sore throat, no meds taken, body aches, intermittent palpitation , hx anxiety, recent which increased s/s , no fever Pt on brief exam: vss, lcta, no reproducible pain pt ordered for: cxr, ekg pt to proceed to the ED Discharge Disposition - Diagnosis Cough - Referrals - Patient Instructions - Post Discharge Activity
[2019-07-26] MEDS ORDERED: diazePAM 5 MG TABLET PO ONE (17:32)
[2019-07-26] MEDS ORDERED: diazePAM 5 MG TABLET ONE (17:35)
--- NOTE | 2019-07-26 18:54 | PDOC ---
History of Present Illness - General Chief Complaint: Cold Symptoms Stated Complaint: COLD SYMPTOMS, cough, congestion Time Seen by Provider: 07/26/19 16:32 - History of Present Illness Initial Comments: 07/26/19 18:52 38-year-old male presents for evaluation of cough and sore throat and intermittent chest pain and vague complaints which have been intermittent over the last 3 to 4 weeks Past History - Past Medical History Allergies/Adverse Reactions: Allergies Allergy/AdvReac Type Severity Reaction Status Date / Time theophylline Allergy Unknown Verified 07/26/19 16:36 shellfish derived Allergy Verified 07/26/19 16:36 nuts Allergy Uncoded 07/26/19 16:36 Home Medications: Ambulatory Orders Albuterol Sulfate Inhaler - [Ventolin Hfa Inhaler -] 1 - 2 inh PO QID PRN Montelukast Sodium [Singulair] 10 mg PO DAILY 07/26/19 Pitavastatin Calcium [Livalo] 2 mg PO DAILY 07/26/19 Anemia: No Asthma: Yes Cancer: No Cardiac Disorders: No CVA: No COPD: No CHF: No Dementia: No Diabetes: No GI Disorders: Yes (GERD) Disorders: No HTN: No Hypercholesterolemia: Yes (Slightly elevated) Liver Disease: No Seizures: No Thyroid Disease: No - Surgical History Abdominal Surgery: No Appendectomy: No Cardiac Surgery: No Cholecystectomy: No Lung Surgery: No Neurologic Surgery: No Orthopedic Surgery: Yes (right miniscus removed) - Immunization History Immunization Up to Date: Yes - Psycho Social/Smoking Cessation Hx Smoking Status: No Smoking History: Never smoked Have you smoked in the past 12 months: No Number of Cigarettes Smoked Daily: 0 Cigars Per Day: 0 Information on smoking cessation initiated: No Hx Alcohol Use: No Drug/Substance Use Hx: No Substance Use Type: None Hx Substance Use Treatment: No Review of Systems - Review of Systems Constitutional: No: Fever Respiratory: Yes: Cough, Shortness of Breath Cardiac (ROS): Yes: Chest Pain *Physical Exam - Vital Signs Last Vital Signs Temp Pulse Resp BP Pulse Ox 97.9 F 88 19 139/79 97 07/26/19 16:34 07/26/19 16:34 07/26/19 16:34 07/26/19 16:34 07/26/19 16:34 - Physical Exam 07/26/19 18:52 GENERAL: The patient is awake, alert, and fully oriented, in no acute distress. HEAD: Normal with no signs of trauma. EYES: sclera anicteric, conjunctiva clear. ENT: Ears normal tympanic membranes normal oropharynx clear uvula midline NECK: Normal range of motion LUNGS: Breath sounds equal, clear to auscultation bilaterally. No wheezes, and no crackles. HEART: S1 and S2 without murmur, rub or gallop. ABDOMEN: Soft, nontender, normoactive bowel sounds. No guarding, no rebound. No masses. EXTREMITIES: Normal range of motion, no edema. No clubbing or cyanosis. No cords, erythema, or tenderness. NEUROLOGICAL: Cranial nerves II through XII grossly intact. PSYCH: Normal mood, normal affect. SKIN: Warm, Dry, normal turgor, no rashes or lesions noted. ED Treatment Course - Medications Given in the ED: ED Medications Discontinued Medications Generic Name Dose Route Start Last Admin Trade Name Freq PRN Reason Stop Dose Admin Diazepam 10 mg 07/26/19 17:32 07/26/19 17:42 Valium - PO 07/26/19 17:33 10 mg ONCE ONE Administration Medical Decision Making - Medical Decision Making 07/26/19 18:52 In the beginning of the interview the patient was extremely pressured. It seemed apparent that he was anxious and expecting a trigger for his asthma. After Valium he calmed down and was concerned about a sore throat a rapid strep test was negative. His throat exam was benign. After speaking to him further he admitted to anxiety and agreed to psychiatric follow-up. Patient is feeling better after Valium. He was previously diagnosed with anxiety and he has a prescription for Xanax which she does not like to take. I have encouraged him to take it without cutting the pills in half and to follow-up with psychiatry. Patient is in agreement with the plan. Discharge - Discharge Information Problems reviewed: Yes Clinical Impression/Diagnosis: Cough, Anxiety Condition: Stable Disposition: HOME - Admission No - Follow up/Referral Referrals: Sami Jesus MD [Primary Care Provider] - Disha Patricia [Non Staff, Medical] - Johnson Wilburn MD [Non Staff, Medical] - Betzaida Ackerman MD [Staff Physician] - Lindsay Vital MD [Staff Physician] - Yesenia Franks MD [Non Staff, Medical] - - Patient Discharge Instructions Additional Instructions: Return to the emergency room for any further issues or concerns and without fail follow-up with psychiatry in 2 to 3 days for further evaluation and treatment options. Continue with your at home Xanax as prescribed. - Post Discharge Activity
--- NOTE | 2019-07-27 16:44 | EKG ---
Test Reason : Blood Pressure : / mmHG Vent. Rate : 096 BPM Atrial Rate : 096 BPM P-R Int : 152 ms QRS Dur : 108 ms QT Int : 376 ms P-R-T Axes : 072 056 041 degrees QTc Int : 475 ms NORMAL SINUS RHYTHM POSSIBLE LEFT ATRIAL ENLARGEMENT BORDERLINE ECG Confirmed by MD NIKKIE, JOSÉ ([id number]) on 07/27/2019 4:44:19 PM Referred By: Confirmed By:JOSÉ LUNDY MD
== END 2019-07-26 19:36 | disposition home or self-care (01) ==
LOC: JERFT 16:28
DX: R05 Cough (principal); F41.9 Anxiety disorder, unspecified; J45.909 Unspecified asthma, uncomplicated; Z88.8 Allergy status to other drugs, medicaments and biological substances; Z91.013 Allergy to seafood
CPT/HCPCS: 71046-TC-FY; 87070; 87880; 93005; 93010; 99284-25

== ENCOUNTER 2021-07-16 20:28 | Emergency (ER) | payer OTHER ==
[2021-07-16 20:31] VITALS: BP 121/75; PULSE 94; TEMP 97.5; BMI 29.5
== END 2021-07-16 21:36 | disposition left against medical advice (07) ==
LOC: JER 20:28
DX: R00.2 Palpitations (principal)
CPT/HCPCS: 93005; 93010; 99283-25

== ENCOUNTER 2022-02-13 21:59 | Emergency (ER) | payer OTHER ==
[2022-02-13 22:11] VITALS: BP 153/88; PULSE 106; RESP 20; BMI 36.9
[2022-02-13] MEDS ORDERED: SODIUM CHLORIDE 0.9% 500 ML INFUS.BAG IV ONE (23:12)
[2022-02-13] MEDS ORDERED: ONDANSETRON 4 MG/2 ML VIAL IVPUSH ONE (23:12)
[2022-02-13] MEDS ORDERED: ONDANSETRON 4 MG/2 ML VIAL ONE (23:26)
== END 2022-02-14 02:24 | disposition home or self-care (01) ==
LOC: JER 21:59
PROC: 3E033GC Introduction of Other Therapeutic Substance into Peripheral Vein, Percutaneous Approach (ICD-10-PCS; principal; 2022-02-13)
DX: F12.10 Cannabis abuse, uncomplicated (principal)
CPT/HCPCS: 93005; 93010; 99284-25

== ENCOUNTER 2022-04-18 20:52 | Emergency (ER) | payer OTHER ==
[2022-04-18 21:20] VITALS: BP 136/88; PULSE 82; RESP 18; TEMP 98.1; BMI 32.5
[2022-04-18 23:03] LABS: BASO % 0.9 % (0-2.0); EOS % 7.5 % (0-4.5); HEMATOCRIT 44.1 % (35.4-49); HEMOGLOBIN 14.8 GM/dL (11.7-16.9); LYMPH % 24.3 % (8-40); MCH 30.2 pg (25.7-33.7); MCHC 33.5 g/dl (32.0-35.9); MEAN CELL VOLUME 90.1 fl (80-96); MEAN PLT VOLUME 7.6 fl (7.5-11.1); MONO % 7.1 % (3.8-10.2); NEUT % 60.2 % (42.8-82.8); PLATELET COUNT 307 10^3/uL (134-434); RBC 4.89 M/mm3 (4.00-5.60); WHITE BLOOD COUNT 8.4 K/mm3 (4.0-10.0)
[2022-04-18 23:24] LABS: ALBUMIN 3.9 g/dl (3.4-5.0); BLOOD UREA NITROGEN 8.3 mg/dL (7-18)
[2022-04-18 23:27] LABS: CREATININE 0.9 mg/dL (0.55-1.3)
[2022-04-18 23:29] LABS: BILIRUBIN,TOTAL 0.3 mg/dL (0.2-1); TOT PROT 7.7 g/dl (6.4-8.2)
== END 2022-04-19 00:14 | disposition home or self-care (01) ==
LOC: JER 20:52
DX: R73.09 Other abnormal glucose (principal)
CPT/HCPCS: 36415; 80053; 82962; 85025; 99283-25

== ENCOUNTER 2022-05-16 09:31 | Emergency (ER) | payer OTHER ==
[2022-05-16 09:40] VITALS: BP 118/63; PULSE 125; RESP 18; TEMP 98.4; BMI 31.7
== END 2022-05-16 11:05 | disposition home or self-care (01) ==
LOC: JER 09:31 → EDUNIT# 09:31 → JER 11:05
DX: J45.909 Unspecified asthma, uncomplicated (principal)
CPT/HCPCS: 99283-25

== ENCOUNTER 2023-05-12 22:34 | Emergency (ER) | payer OTHER ==
[2023-05-12 22:43] VITALS: TEMP 98.8; BMI 31.7
[2023-05-12] MEDS ORDERED: methylPREDNISolone NA SUCC 125 MG/2 ML VIAL IVPB ONE (23:16)
[2023-05-12] MEDS ORDERED: ALBUTEROL SO4 2.5/IPRATROPIUM 0.5 INH SOL 3 ML VIAL.NEB. NEB ONE ×2 (23:16→23:31)
[2023-05-12] MEDS ORDERED: ACETAMINOPHEN 1000 MG/100 ML BAG IVPB ONE (23:31)
[2023-05-12] MEDS ORDERED: methylPREDNISolone NA SUCC 125 MG/2 ML VIAL ONE (23:35)
[2023-05-12] MEDS ORDERED: SODIUM CHLORIDE 1,000 ML IV STA (23:43)
[2023-05-13] MEDS ORDERED: ACETAMINOPHEN INJECTION 100 ML IVPB ONE (00:06)
[2023-05-13 00:17] LABS: BASO % 0.8 % (0-2.0); EOS % 1.3 % (0-4.5); HEMATOCRIT 43.8 % (35.4-49); HEMOGLOBIN 14.7 GM/dL (11.7-16.9); LYMPH % 13.5 % (8-40); MCH 29.9 pg (25.7-33.7); MCHC 33.5 g/dl (32.0-35.9); MEAN CELL VOLUME 89.2 fl (80-96); MEAN PLT VOLUME 7.6 fl (7.5-11.1); MONO % 10.3 % (3.8-10.2); NEUT % 74.1 % (42.8-82.8); PLATELET COUNT 334 10^3/uL (134-434); RBC 4.91 M/mm3 (4.00-5.60); RDW 13.1 % (11.9-15.9); WHITE BLOOD COUNT 9.8 K/mm3 (4.0-10.0)
[2023-05-13 00:37] LABS: POTASSIUM 4.1 mmol/L (3.5-5.1)
[2023-05-13 00:38] LABS: CALCIUM 8.7 mg/dL (8.5-10.1)
[2023-05-13 00:39] LABS: ALBUMIN 3.8 g/dl (3.4-5.0); BLOOD UREA NITROGEN 6.9 mg/dL (7-18); MAGNESIUM 2.1 mg/dL (1.8-2.4)
[2023-05-13 00:44] LABS: BILIRUBIN,TOTAL 0.4 mg/dL (0.2-1); TOT PROT 7.7 g/dl (6.4-8.2)
[2023-05-13 01:59] VITALS: BP 127/69; PULSE 96; RESP 20
== END 2023-05-13 02:04 | disposition home or self-care (01) ==
LOC: JER 22:34
PROC: 3E0F7GC Introduction of Other Therapeutic Substance into Respiratory Tract, Via Natural or Artificial Opening (ICD-10-PCS; 2023-05-12)
PROC: 3E033NZ Introduction of Analgesics, Hypnotics, Sedatives into Peripheral Vein, Percutaneous Approach (ICD-10-PCS; principal; 2023-05-13)
PROC: 3E033GC Introduction of Other Therapeutic Substance into Peripheral Vein, Percutaneous Approach (ICD-10-PCS; 2023-05-13)
PROC: 3E0337Z Introduction of Electrolytic and Water Balance Substance into Peripheral Vein, Percutaneous Approach (ICD-10-PCS; 2023-05-13)
DX: U07.1 COVID-19 (principal); J45.901 Unspecified asthma with (acute) exacerbation; R06.02 Shortness of breath; R07.0 Pain in throat; R05.9 Cough, unspecified; R09.81 Nasal congestion; R07.89 Other chest pain; R11.2 Nausea with vomiting, unspecified; R00.2 Palpitations
CPT/HCPCS: 0241U-QW; 36415; 71045-TC-FY; 80053; 83735; 85025; 93005; 93010; 99285-25

== ENCOUNTER 2023-09-30 23:08 | Emergency (ER) | payer OTHER ==
[2023-09-30 23:16] VITALS: BP 144/79; PULSE 99; RESP 18; TEMP 98.5; BMI 31.0
[2023-10-01] MEDS ORDERED: predniSONE 20 MG TABLET (UD) ONE (00:06)
[2023-10-01] MEDS ORDERED: ALBUTEROL SO4 2.5/IPRATROPIUM 0.5 INH SOL 3 ML VIAL.NEB. NEB ONE ×3 (00:06→01:49)
[2023-10-01] MEDS: predniSONE 20 MG TABLET (UD) PO ONE (00:08)
[2023-10-01] MEDS: ALBUTEROL SO4 2.5/IPRATROPIUM 0.5 INH SOL 3 ML VIAL.NEB. NEB ONE ×3 (00:24→01:54)
[2023-10-01] MEDS ORDERED: OSELTAMIVIR PHOSPHATE 75 MG CAPSULE PO ONE (01:13)
[2023-10-01] MEDS ORDERED: OSELTAMIVIR PHOSPHATE 75 MG CAPSULE ONE (01:35)
[2023-10-01] MEDS: OSELTAMIVIR PHOSPHATE 75 MG CAPSULE PO ONE (01:41)
== END 2023-10-01 02:41 | disposition home or self-care (01) ==
LOC: JER 23:08
PROC: 3E0F7GC Introduction of Other Therapeutic Substance into Respiratory Tract, Via Natural or Artificial Opening (ICD-10-PCS; principal; 2023-10-01)
PROC: 3E0F7GC Introduction of Other Therapeutic Substance into Respiratory Tract, Via Natural or Artificial Opening (ICD-10-PCS; 2023-10-01)
PROC: 3E0F7GC Introduction of Other Therapeutic Substance into Respiratory Tract, Via Natural or Artificial Opening (ICD-10-PCS; 2023-10-01)
DX: R06.02 Shortness of breath (principal); J45.909 Unspecified asthma, uncomplicated; J10.1 Influenza due to other identified influenza virus with other respiratory manifestations; Z20.822 Contact with and (suspected) exposure to COVID-19
CPT/HCPCS: 0241U-QW; 71046-TC-FY; 93005; 93010; 99285-25

== ENCOUNTER 2023-10-26 16:53 | Emergency (ER) | payer OTHER ==
[2023-10-26 17:04] VITALS: BP 123/70; PULSE 104; RESP 18; TEMP 98; BMI 31.7
[2023-10-26] MEDS ORDERED: ONDANSETRON 4 MG/2 ML VIAL ONE (18:58)
[2023-10-26] MEDS: SODIUM CHLORIDE 0.9% 500 ML INFUS.BAG IV ONE (19:05)
[2023-10-26] MEDS: ONDANSETRON 4 MG/2 ML VIAL IVPUSH ONE (19:05)
[2023-10-26] MEDS ORDERED: ALBUTEROL SO4 2.5/IPRATROPIUM 0.5 INH SOL 3 ML VIAL.NEB. NEB ONE (19:12)
[2023-10-26] MEDS: ALBUTEROL SO4 2.5/IPRATROPIUM 0.5 INH SOL 3 ML VIAL.NEB. NEB ONE (19:12)
[2023-10-26 19:21] LABS: HEMOGLOBIN 15.4 GM/dL (11.7-16.9); MCH 30.5 pg (25.7-33.7); MCHC 34.2 g/dl (32.0-35.9); MEAN CELL VOLUME 89.4 fl (80-96); PLATELET COUNT 316 10^3/uL (134-434); RBC 5.04 M/mm3 (4.00-5.60); RDW 13.4 % (11.9-15.9); WHITE BLOOD COUNT 9.2 K/mm3 (4.0-10.0)
[2023-10-26 19:40] LABS: POTASSIUM 4.1 mmol/L (3.5-5.1)
[2023-10-26 19:41] LABS: CALCIUM 9.6 mg/dL (8.5-10.1)
[2023-10-26 19:42] LABS: BLOOD UREA NITROGEN 8.8 mg/dL (7-18)
[2023-10-26 20:33] LABS: ANISOCYTOSIS 0; MACROCYTOSIS 0
== END 2023-10-26 20:54 | disposition home or self-care (01) ==
LOC: JERFT 16:53
PROC: 3E033GC Introduction of Other Therapeutic Substance into Peripheral Vein, Percutaneous Approach (ICD-10-PCS; principal; 2023-10-26)
PROC: 3E0F7GC Introduction of Other Therapeutic Substance into Respiratory Tract, Via Natural or Artificial Opening (ICD-10-PCS; 2023-10-26)
DX: J45.41 Moderate persistent asthma with (acute) exacerbation (principal); R09.89 Other specified symptoms and signs involving the circulatory and respiratory systems; R11.10 Vomiting, unspecified
CPT/HCPCS: 36415; 71046-TC-FY; 80048; 83690; 85025; 99284-25

== ENCOUNTER 2023-11-18 04:40 | Emergency (ER) | payer OTHER ==
[2023-11-18 04:45] VITALS: BMI 31.0
[2023-11-18] MEDS: ALBUTEROL SO4 2.5/IPRATROPIUM 0.5 INH SOL 3 ML VIAL.NEB. NEB ONE (06:45)
[2023-11-18] MEDS ORDERED: ALBUTEROL SO4 2.5/IPRATROPIUM 0.5 INH SOL 3 ML VIAL.NEB. NEB ONE (06:46)
[2023-11-18 09:08] VITALS: BP 132/76; PULSE 67; RESP 20; TEMP 98.2
== END 2023-11-18 10:15 | disposition home or self-care (01) ==
LOC: JER 04:40
PROC: 3E0F7GC Introduction of Other Therapeutic Substance into Respiratory Tract, Via Natural or Artificial Opening (ICD-10-PCS; principal; 2023-11-18)
DX: J45.909 Unspecified asthma, uncomplicated (principal); F41.9 Anxiety disorder, unspecified; R07.89 Other chest pain
CPT/HCPCS: 99283-25

== ENCOUNTER 2023-11-23 01:48 | Emergency (ER) | payer OTHER ==
[2023-11-23 01:56] VITALS: BMI 31.0
[2023-11-23 02:04] VITALS: TEMP 98
[2023-11-23 03:10] LABS: BASO % 0.5 % (0-2.0); HEMATOCRIT 42.2 % (35.4-49); HEMOGLOBIN 14.3 GM/dL (11.7-16.9); LYMPH % 23.4 % (8-40); MCH 30.3 pg (25.7-33.7); MCHC 33.8 g/dl (32.0-35.9); MEAN CELL VOLUME 89.6 fl (80-96); MEAN PLT VOLUME 7.4 fl (7.5-11.1); MONO % 11.2 % (3.8-10.2); NEUT % 62.9 % (42.8-82.8); PLATELET COUNT 270 10^3/uL (134-434); RBC 4.71 M/mm3 (4.00-5.60); RDW 13.2 % (11.9-15.9); WHITE BLOOD COUNT 7.5 K/mm3 (4.0-10.0)
[2023-11-23 04:24] LABS: POTASSIUM 4.2 mmol/L (3.5-5.1)
[2023-11-23 04:26] LABS: BLOOD UREA NITROGEN 13.6 mg/dL (7-18); CALCIUM 8.8 mg/dL (8.5-10.1)
[2023-11-23 04:27] LABS: ALBUMIN 3.6 g/dl (3.4-5.0)
[2023-11-23 04:30] LABS: CREATININE 0.9 mg/dL (0.55-1.3)
[2023-11-23 04:31] LABS: BILIRUBIN,TOTAL 0.4 mg/dL (0.2-1); TOT PROT 7.1 g/dl (6.4-8.2)
[2023-11-23 06:12] LABS: POTASSIUM 4.4 mmol/L (3.5-5.1)
[2023-11-23 06:14] LABS: BLOOD UREA NITROGEN 13.4 mg/dL (7-18); CALCIUM 9.3 mg/dL (8.5-10.1)
[2023-11-23 06:18] LABS: CREATININE 0.9 mg/dL (0.55-1.3)
[2023-11-23] MEDS ORDERED: ALBUTEROL SO4 2.5/IPRATROPIUM 0.5 INH SOL 3 ML VIAL.NEB. NEB ONE (06:43)
[2023-11-23] MEDS: ALBUTEROL SO4 2.5/IPRATROPIUM 0.5 INH SOL 3 ML VIAL.NEB. NEB ONE (06:54)
[2023-11-23 06:57] VITALS: BP 102/61; PULSE 82; RESP 16
== END 2023-11-23 10:38 | disposition home or self-care (01) ==
LOC: JER 01:48
PROC: 3E0F7GC Introduction of Other Therapeutic Substance into Respiratory Tract, Via Natural or Artificial Opening (ICD-10-PCS; principal; 2023-11-23)
DX: R06.02 Shortness of breath (principal); R00.2 Palpitations
CPT/HCPCS: 36415; 71046-TC-FY; 80048; 80053; 84484; 85025; 93005; 93010; 99285-25